=== PATIENT | female | born 1980 | race Caucasian/White ===

== ENCOUNTER 2020-12-19 13:27 | Outpatient (REF) | payer OTHER, SELFPAY ==
--- NOTE | ~2020-12-19 | MM_ITS ---
EXAMINATION: MM SCREENING DIGITAL BREAST TOMOSYNTHESIS, BILATERAL CLINICAL INFORMATION: Screening. Asymptomatic. The lifetime risk of breast cancer based on the Tyrer-Cuzick Model is 8%. COMPARISON: Mammography: 10/10/2018 (baseline). TECHNIQUE: Digital breast tomosynthesis is performed in both the craniocaudal and mediolateral oblique views along with computer-aided detection (CAD). Synthesized 2D images are generated from the tomosynthesis. FINDINGS: There are scattered areas of fibroglandular density (ACR BI-RADS breast composition Category b). There are no significant masses, abnormal calcifications, or other abnormalities. Parenchymal pattern is similar to prior baseline exam. No developing density. The skin contours are smooth. MM/MM tomosynthesis screening BI IMPRESSION: No mammographic evidence of malignancy. ASSESSMENT: BI-RADS 1: Negative RECOMMENDATION: Routine annual mammography screening. This patient's information was entered into a reminder system with a target due date for their next mammogram.
== END 2020-12-19 13:28 | disposition home or self-care (01) ==
LOC: HO.MAMMO 13:27
PROVIDERS: Visit Provider Internal Medicine
DX: Z12.31 Encounter for screening mammogram for malignant neoplasm of breast (principal)
CPT/HCPCS: 77063; 77067

== ENCOUNTER 2020-12-24 07:51 | Outpatient (REF) | payer OTHER, SELFPAY ==
[2020-12-24 08:40] LABS: MANUAL DIFF FLAG NO
[2020-12-24 09:01] LABS: Alanine Aminotransferase 15 U/L (0-31); Albumin Level 3.9 g/dL (3.5-5.0); Alkaline Phosphatase 85 U/L (39-117); Anion Gap 13 (12-20); Aspartate Amino Transferase 17 U/L (5-31); Bilirubin Total 0.6 mg/dL (0.0-1.0); Blood Urea Nitrogen 12 mg/dL (9-16); Carbon Dioxide 25 mmol/L (22-29); Chloride 105 mmol/L (96-108); Cholesterol 173 mg/dL; Estimated Glomerular Filt Rate > 60; Glucose Fasting 106 mg/dL (60-99); HDL Cholesterol 51 mg/dL; LDL Cholesterol Calculated 109 mg/dl; Potassium 4.6 mmol/L (3.3-5.1); Sodium 138 mmol/L (135-145); Total Protein 6.5 g/dL (6.5-8.0); Triglycerides 65 mg/dL
[2020-12-24 09:06] LABS: Basophils Percent Auto 0.1 % (0-2); Eosinophils Absolute Auto 0.2 X10*3/uL (0.0-0.4); Eosinophils Percent Auto 2.6 % (0-4); Hematocrit 38.6 % (37-47); Hemoglobin 12.7 g/dl (12.0-16.0); Imm Gran Abs Auto 0.03 X10*3/uL (0.00-0.03); Imm Gran Pct Auto 0.3 % (0.0-0.4); Lymphocytes Absolute Auto 2.9 X10*3/uL (1.2-4.9); Lymphocytes Percent Auto 31.2 % (20-40); Mean Corpuscular HGB Conc 32.9 g/dl (31.0-35.0); Mean Corpuscular Hemoglobin 31.1 pg (27.0-33.0); Mean Corpuscular Volume 94.6 fL (80-98); Mean Platelet Volume 8.1 fL (9.4-12.3); Monocytes Absolute Auto 0.5 X10*3/uL (0.1-1.2); Monocytes Percent Auto 5.7 % (2-11); Neutrophils Absolute Auto 5.6 X10*3/uL (2.0-8.3); Neutrophils Percent Auto 60.1 % (45-73); Platelet Count 360 X10*3/uL (160-400); Red Blood Count 4.08 X10*6/uL (4.20-5.50); Red Cell Distribution Width 13.7 % (11.0-16.0); White Blood Count 9.3 X10*3/uL (4.8-10.8)
[2020-12-24 09:25] LABS: Thyroid Stimulating Hormone 0.92 uIU/mL (0.32-4.0)
== END 2020-12-24 07:52 | disposition home or self-care (01) ==
LOC: HO.LAB 07:51
PROVIDERS: PCP Internal Medicine; Visit Provider Internal Medicine
DX: E66.9 Obesity, unspecified (principal); E78.5 Hyperlipidemia, unspecified; D64.9 Anemia, unspecified
CPT/HCPCS: 36415; 80053; 80061; 84443; 85025

== ENCOUNTER → 2021-02-24 15:06 | Outpatient (BNVA) | payer OTHER, SELFPAY | PROVIDERS: PCP Internal Medicine; Visit Provider Nurse Practitioner ==

== ENCOUNTER 2021-03-19 08:22 | Outpatient (REF) | payer OTHER, SELFPAY ==
--- NOTE | ~2021-03-19 | US_ITS ---
EXAMINATION: US ABDOMEN COMPLETE CLINICAL INFORMATION: Upper abdominal pain, unspecified. COMPARISON: Ultrasound abdomen limited 01/07/2016. Ultrasound abdomen complete 01/26/2013. TECHNIQUE: Real-time imaging of the abdominal viscera. FINDINGS: PANCREAS: The body of the pancreas is normal. The head and tail are not well visualized. ABDOMINAL AORTA: The proximal, mid, and distal segments are normal in caliber. INFERIOR VENA CAVA: Visualized portions are normal. LIVER: Normal. The liver is normal in size. The liver contour is normal. Parenchymal echogenicity is normal. No focal hepatic lesion. There is no intrahepatic biliary duct dilatation seen. GALLBLADDER: Normal. The gallbladder is physiologically distended without evidence of stones, sludge, polyps, wall thickening or pericholecystic fluid. COMMON BILE DUCT: Normal in caliber measuring 0.5 cm in diameter. RIGHT KIDNEY: Normal. No hydronephrosis. No renal calculi or focal parenchymal lesions. The kidney measures 11.2 cm in maximum dimension. LEFT KIDNEY: Normal. No hydronephrosis. No renal calculi or focal parenchymal lesions. The kidney measures 11.2 cm in maximum dimension. SPLEEN: Normal. The spleen measures 10.5 cm in maximum dimension. FREE FLUID: None. US/US abdomen complete IMPRESSION: Limited visualization of the pancreas otherwise unremarkable abdominal ultrasound.
== END 2021-03-19 08:23 | disposition home or self-care (01) ==
LOC: HO.US 08:22
PROVIDERS: PCP Internal Medicine; Visit Provider Nurse Practitioner
DX: R10.10 Upper abdominal pain, unspecified (principal); R14.0 Abdominal distension (gaseous)
CPT/HCPCS: 76700

== ENCOUNTER → 2021-03-25 07:57 | Outpatient (REF) | payer OTHER, SELFPAY ==
--- NOTE | ~2021-03-25 | NM_ITS ---
EXAMINATION: WA RADIONUCLIDE SOLID FOOD GASTRIC EMPTYING 4-HOUR STUDY CLINICAL INFORMATION: Early satiety. COMPARISON: None TECHNIQUE: A standard meal consisting of 4 oz of Egg Beaters brand tagged with 1.0 microcuries Tc-99m Sulfur Colloid, 8 oz water and 2 slices of toast with jelly was administered orally to the patient. Images were obtained using a dual head gamma camera in the anterior and posterior projections over of the stomach immediately post ingestion and at hourly intervals up to 4 hours post ingestion. The anterior and posterior counts at each time interval were averaged using the geometric mean and expressed as percentage of the immediate post ingestion counts. FINDINGS: There is good visualization of activity in the stomach immediately post ingestion. As the study progresses, there is good clearance of activity from the stomach and visualization of progressively increasing small bowel activity. By the end of the study, there is almost no retention noted in the stomach. Retention in the stomach at each time interval was: 1 hour 39% (normal 37%-90%) 2 hours 18% (normal 30%-60%) 3 hours 9% 4 hours not performed (normal 0%-10%) WA/WA gastric emptying study IMPRESSION: Normal 4-hour solid food gastric emptying study.
== END ==
LOC: HO.NUCMED 07:57
PROVIDERS: Nurse Practitioner; Visit Provider Internal Medicine
DX: R10.10 Upper abdominal pain, unspecified (principal); R68.81 Early satiety
CPT/HCPCS: 78264; 87338; A9541

== ENCOUNTER → 2021-03-31 16:10 | Outpatient (BNVA) | payer OTHER, SELFPAY | PROVIDERS: PCP Internal Medicine; Visit Provider Nurse Practitioner ==

== ENCOUNTER → 2021-05-12 09:54 | Outpatient (BNVA) | payer OTHER, SELFPAY | PROVIDERS: PCP Internal Medicine; Referring Provider Internal Medicine; Visit Provider Nurse Practitioner | DX: Z11.0 Encounter for screening for intestinal infectious diseases (principal); A04.8 Other specified bacterial intestinal infections; K21.9 Gastro-esophageal reflux disease without esophagitis; R10.9 Unspecified abdominal pain; R14.0 Abdominal distension (gaseous); R10.10 Upper abdominal pain, unspecified | CPT/HCPCS: 99212 ==

== ENCOUNTER 2021-07-13 16:20 | Outpatient (REF) | payer OTHER, SELFPAY | END 2021-07-13 16:21 | disposition home or self-care (01) | LOC: HO.LNP 16:20 | PROVIDERS: Visit Provider Nurse Practitioner | DX: A04.8 Other specified bacterial intestinal infections (principal) | CPT/HCPCS: 87338 ==

== ENCOUNTER → 2021-07-31 13:24 | Outpatient (BNVA) | payer OTHER, SELFPAY | PROVIDERS: PCP Internal Medicine; Referring Provider Internal Medicine; Visit Provider Nurse Practitioner | DX: A04.8 Other specified bacterial intestinal infections (principal); R14.0 Abdominal distension (gaseous); K21.9 Gastro-esophageal reflux disease without esophagitis | CPT/HCPCS: 99212 ==

== ENCOUNTER 2021-08-11 16:30 | Outpatient (REF) | payer OTHER, SELFPAY ==
--- NOTE | ~2021-08-11 | XR_ITS ---
EXAMINATION: XR LUMBOSACRAL SPINE CLINICAL INFORMATION: Pain COMPARISON: None TECHNIQUE: Three views of the lumbosacral spine. FINDINGS: The vertebral bodies and posterior elements are normal. The disc spaces are preserved and the vertebral alignment is normal. The paraspinal soft tissues are normal. There is an IUD in the pelvis. XR/XR lumbar spine 2-3V IMPRESSION: Unremarkable examination.
--- NOTE | ~2021-08-11 | XR_ITS ---
EXAMINATION: BILATERAL KNEE X-RAY CLINICAL INFORMATION: Pain COMPARISON: None TECHNIQUE: 4 views of each knee FINDINGS: Right: Bone alignment is normal. No acute fracture or dislocation is seen. There is a well-corticated ossified density adjacent to the lateral patella seen on the sunrise view only, question related to old trauma. There is no joint effusion. Left: Bone alignment is normal. No fracture or dislocation is seen. Joint spaces are normal. There is no joint effusion. XR/XR knee RT 3V IMPRESSION: Right: Small soft tissue ossification adjacent to the lateral patella seen on the sunrise view only, question related to old trauma otherwise unremarkable exam. Left: Unremarkable exam.
--- NOTE | ~2021-08-11 | XR_ITS ---
EXAMINATION: BILATERAL KNEE X-RAY CLINICAL INFORMATION: Pain COMPARISON: None TECHNIQUE: 4 views of each knee FINDINGS: Right: Bone alignment is normal. No acute fracture or dislocation is seen. There is a well-corticated ossified density adjacent to the lateral patella seen on the sunrise view only, question related to old trauma. There is no joint effusion. Left: Bone alignment is normal. No fracture or dislocation is seen. Joint spaces are normal. There is no joint effusion. XR/XR knee LT 3V IMPRESSION: Right: Small soft tissue ossification adjacent to the lateral patella seen on the sunrise view only, question related to old trauma otherwise unremarkable exam. Left: Unremarkable exam.
== END 2021-08-11 16:31 | disposition home or self-care (01) ==
LOC: HO.XRAY 16:30
PROVIDERS: PCP Internal Medicine; Visit Provider Nurse Practitioner Family
DX: M54.50 Low back pain, unspecified (principal); M25.562 Pain in left knee; M25.561 Pain in right knee
CPT/HCPCS: 72100; 73562

== ENCOUNTER 2021-09-28 10:53 | Outpatient (REF) | payer OTHER, SELFPAY ==
[2021-09-28 11:48] LABS: Rheumatoid Factor < 15.0 IU/mL (<15.0)
[2021-09-30 15:26] LABS: Anti Nuclear Antibody Screen NEGATIVE (NEGATIVE)
== END 2021-09-28 10:54 | disposition home or self-care (01) ==
LOC: HO.LAB 10:53
PROVIDERS: PCP Internal Medicine; Visit Provider Nurse Practitioner Family
DX: M25.561 Pain in right knee (principal); M25.562 Pain in left knee
CPT/HCPCS: 36415; 86038; 86039; 86431

== ENCOUNTER 2021-10-28 17:00 | Outpatient (RCR) | payer OTHER, SELFPAY ==
--- NOTE | 2021-10-14 18:05 | MHC.PT.EP ---
[facility] [place] [facility] [place] [facility] [employer] [facility] [address] Kateryna Kothari [address] [phone] F: [phone] F: [phone] F: [phone] F: [phone] Physical Therapy Plan of Care Date of Evaluation: Date of Surgery: N/A Diagnosis: M25.561 pain in right knee M25.562 pain in left knee Assessment: pt's signs and symptoms consistent w/ B patellar tendinopathy. Questionable potential meniscal involvement given pt's subjective reports of her knee getting stuck and having to manipulate her knee to extend it. pt presents to physical therapy with pain, decreased range of motion, decreased strength, impaired functional mobility, impaired postural awareness, and gait deviations. pt is a good candidate for skilled PT due to age, potential remediation of impairments, typical disease/condition progression and prognosis, comorbidities, and motivation. pt would benefit from tailored strengthening and stretching exercise program, functional training, gait training, postural re-training, neuromuscular re-education, modalities as needed for pain, equipment safety demonstration. Frequency and Duration: The patient will be seen 1x/wk for 6 wks Short Term Goals: pt will be I w/ HEP to promote self-management of condition. pt will improve B quad strength to 5/5 to promote ease in sit to stand transfers. Acid Filler Goals: pt will ascend/descend 10 stairs w/ reciprocal pattern to promote ease in accessing primary living spaces. pt will report a statistically significant improvement in self-reported outcome measure, LEFI, to promote return to PLOF. Treatment Plan: Modalities to reduce pain, spasms and effusion. Manual therapy to restore motion and function. Therapeutic exercise to improve strength and flexibility. Neuromuscular re-education for posture and balance. Therapeutic activities to return to functional activities of daily living. Electronically signed by: Joselin Waddell PT, DPT Please sign and return to therapist. Thank you for your referral.
--- NOTE | 2021-11-19 15:16 | MHC.PT.DC ---
[facility] [place] [facility] [place] [facility] [place] [facility] [address] Kateryna Kothari [address] [phone] F: [phone] F: [phone] F: [phone] F: [phone] Physical Therapy Discharge Report Diagnosis: M25.561 pain in right knee M25.562 pain in left knee Date of Surgery: N/A Date of Evaluation: 10/14/21 Date of Discharge: 11/19/21 Treatments to Date: 2 Cancellations to Date: 0 No Shows to Date: 3 Discharge Status: Visit Non-compliance Discharge Summary: The patient overall had very poor tolerance of all exercises. She only attended the initial evaluation and one treatment session. Patient unable to tolerate gentle, open chain activities. She performed exercises with very slow pace and facial grimacing throughout session. Her signs and symptoms appear to be consistent with a meniscal tear as she reports frequent clicking and catching of the knee that she has to manipulate to be able to extend. Kinesiotape was trialed with reports of improvement of pain. She was offered iontophoresis but declined. She was offered ultrasound and stated she would be interested in this treatment; however, eventually declined. She does not have an orthopedic doctor so she was encouraged to get a referral to see them to see if they can order her an MRI to assess the soft tissue integrity. She has missed three consecutive appointments. Per [facility] attendance policy she is to be discharged from this physical therapy plan of care due to visit non-compliance. Electronically signed by: Joselin Waddell PT, DPT Please sign and return to therapist. Thank you for your referral.
== END 2021-11-19 15:16 | disposition home or self-care (01) ==
LOC: HO.PT 17:00
PROVIDERS: PCP Internal Medicine; Visit Provider Nurse Practitioner Family
DX: M25.561 Pain in right knee (principal); M25.562 Pain in left knee
CPT/HCPCS: 97110; 97161

== ENCOUNTER → 2021-11-19 12:49 | Outpatient (BNVA) | payer OTHER, SELFPAY | PROVIDERS: PCP Internal Medicine; Visit Provider Physician Assistant | DX: M54.50 Low back pain, unspecified (principal); M22.2X1 Patellofemoral disorders, right knee; M54.16 Radiculopathy, lumbar region | CPT/HCPCS: 99202 ==

== ENCOUNTER → 2021-12-11 13:00 | Outpatient (BNVA) | payer OTHER, SELFPAY | PROVIDERS: PCP Internal Medicine; Visit Provider Nurse Practitioner Family | DX: M25.561 Pain in right knee (principal); M25.562 Pain in left knee | CPT/HCPCS: 99202 ==

== ENCOUNTER → 2022-01-15 12:51 | Outpatient (BNVA) | payer OTHER, SELFPAY | PROVIDERS: PCP Internal Medicine; Visit Provider Nurse Practitioner Family | DX: M25.561 Pain in right knee (principal); M25.562 Pain in left knee | CPT/HCPCS: 99212 ==

== ENCOUNTER 2022-01-29 11:24 | Emergency (ER) | payer OTHER, SELFPAY ==
--- NOTE | ~2022-01-29 | US_ITS ---
EXAMINATION: US VENOUS ULTRASOUND WITH DOPPLER LOWER EXTREMITY, BILATERAL CLINICAL INFORMATION: Bilateral lower extremity/calf pain. Assess for occult DVT. COMPARISON: CT left knee 01/29/2022, radiographs right knee 08/11/2021 TECHNIQUE: Ultrasound of the deep veins is performed from the hip to the calf with compression sonography and color and pulse Doppler assessment. Spectral analysis with color-flow imaging is performed. FINDINGS: RIGHT: There is normal venous compression and respiratory variation and augmented flow. The visualized common femoral vein, superficial femoral vein, profunda femoral vein, popliteal vein, and the trifurcation region shows no evidence of deep venous thrombosis. There is no significant popliteal fossa cyst. LEFT: There is normal venous compression and respiratory variation and augmented flow. The visualized common femoral vein, superficial femoral vein, profunda femoral vein, popliteal vein, and the trifurcation region shows no evidence of deep venous thrombosis. There is no significant popliteal fossa cyst. US/US venous duplex LE BI IMPRESSION: No DVT demonstrated in the bilateral lower extremity.
--- NOTE | ~2022-01-29 | CT_ITS ---
EXAMINATION: CT KNEE, LEFT WITHOUT CONTRAST CLINICAL INFORMATION: Negative x-ray. Pain. COMPARISON: 08/11/2021 TECHNIQUE: Multidetector volumetric imaging of the left knee performed without IV contrast. Coronal and sagittal reformatted images are obtained and reviewed. This CT examination was performed using dose optimization techniques as appropriate, variously including the following: *Automated exposure control *Adjustment of mA and/or kV according to patient size (this includes techniques or standardized protocols for targeted exams where dose is matched to indication/reason for exam; i.e. extremities or head) *Use of iterative reconstruction technique DLP: 202 mGy-cm FINDINGS: There is no acute fracture or subluxation. Moderate medial compartment joint space narrowing. Small tricompartmental marginal osteophytes are noted. There is a small suprapatellar joint effusion. The soft tissues are unremarkable. CT/CT knee LT wo con IMPRESSION: Small joint effusion. Tricompartmental degenerative changes are present which are greatest at the medial compartment with moderate joint space narrowing. No acute fracture or malalignment.
[2022-01-29 11:25] VITALS: RESP 18; O2SAT 97; BMI 25.8
[2022-01-29 15:05] VITALS: BP 114/69; PULSE 62; RESP 18; TEMP 36.7; O2SAT 100
--- NOTE | 2022-01-29 16:36 | ED.GENADULT ---
HPI - General Adult General Chief complaint: Extremity Injury, Lower Stated complaint: cant walk/knee pain Time Seen by Provider: 01/29/22 11:33 History of Present Illness HPI narrative: Patient complains of left knee pain making it hard to walk with no injury, this is been going on for several months The knee pain has been worsening, and now she has pain in both lower legs as well There is no shortness of breath no fever Related Data Previous Rx's Medication Instructions Recorded lidocaine 4 % topical patch 2 patch topical DAILY PRN pain #30 09/28/21 (Aspercreme (lidocaine)) ea acetaminophen 500 mg tablet 1,000 mg PO QID PRN pain #30 tabs 01/29/22 ibuprofen 600 mg tablet 600 mg PO Q6H PRN pain #20 tabs 01/29/22 Allergies Allergy/AdvReac Type Severity Reaction Status Date / Time egg Allergy Intermediate vomitting, Verified 02/03/22 09:41 hives peanut Allergy Mild Abdominal Verified 02/03/22 09:41 Pain latex [LATEX] AdvReac Intermediate rash Verified 02/03/22 09:41 Review of Systems Review of Systems: Positive for atraumatic left knee pain and bilateral calf Negatives are no fever no chills no fall no fainting no dizziness no neck pain no back pain no numbness weakness or tingling no skin rash no chest pain no shortness of breath no vomiting Yes all other systems are reviewed and are negative PMFSH Past Medical History Source: nursing notes reviewed Medical History Early satiety GERD (gastroesophageal reflux disease) H. pylori infection Lumbar back pain Obesity Surgical History History of hernia surgery Family History Family History Mother Cervical cancer Father Diabetes Family/Other Substance use disorder Mental health disorder Social History Social History Housing: Apartment Alcohol intake: former Patient Tobacco Use Status: Former Tobacco user Tobacco use type: Cigarette e-Cigarette/Vaping Use: Never Used Second Hand Smoke Exposure: No service: No Current occupational status: employed Cognitive needs: No Hearing needs: No Vision needs: Yes Physical Exam ED Vital Signs: Vital Signs - 24 hr 01/29/22 11:25 01/29/22 15:05 Temperature 98.0 F Pulse Rate 62 Respiratory Rate 18 18 Blood Pressure 114/69 Pulse Oximetry 97 100 Oxygen Delivery Method Room Air Room Air BMI result Body Mass Index 25.8 General appearance uncomfortable no acute distress Head is normocephalic atraumatic Neck is supple Respiratory no distress Chest clear to auscultation bilateral Heart no murmur Abdomen soft nontender Extremities there is tenderness without swelling to both posterior lower legs The skin is normal there is no redness no warmth no wounds, both legs are neurovascular intact distal Left knee there is tenderness and mild swelling around the joint, the patient can extend to 180 can flex to about 90, walks with a limp and has no obvious effusion, no ligamentous laxity Skin no rash Neuro no focal motor sensory deficits Course Course Course Narrative: Patient with complaint of left knee pain with no injury that is been increasingly severe over recent months had imaging with a CT scan of the left knee and bilateral ultrasounds for her posterior leg pain there was no DVT there was no finding of any mass on this noncontrast CT scan Patient is advised to follow with primary doctor or orthopedist, she may need further imaging to rule out the possibility of any mass or other issue that could be causing this increasingly severe pain Discharge Plan Discharge Clinical Impression: Left knee pain, Bilateral leg pain Patient Disposition: Home, Self-Care Additional Instructions: The Ct scan did not show any acute explanation for your left knee pain Ultrasound did not show any blood clots Follow with primary doctor or orthopedist for further evaluation, you may need MRI or other imaging to rule out any mass or any treatable cause of this pain Return any time any worse condition or any concerns Prescriptions: New acetaminophen 500 mg tablet 1,000 mg PO QID PRN (Reason: pain) Qty: 30 0RF ibuprofen 600 mg tablet 600 mg PO Q6H PRN (Reason: pain) Qty: 20 0RF No Action lidocaine [Aspercreme (lidocaine)] 4 % adhesive patch,medicated 2 patch topical DAILY PRN (Reason: pain) Qty: 30 0RF Referrals: Vipul Barraza MD [Physician] - (Left knee pain) Interventions: ED Discharge Assessment Last Done: 01/29/22 17:12 Discharge Date/Time: 01/29/22 17:14
== END 2022-01-29 17:14 | disposition home or self-care (01) ==
PROVIDERS: Emergency Provider Student in an Organized Health Care Education/Training Program; PCP Internal Medicine
DX: M25.562 Pain in left knee (principal); M79.605 Pain in left leg; M79.604 Pain in right leg; Z87.891 Personal history of nicotine dependence
CPT/HCPCS: 73700; 93970; 99282; 99284

== ENCOUNTER 2022-03-17 07:52 | Outpatient (REF) | payer OTHER, SELFPAY ==
--- NOTE | ~2022-03-17 | XR_ITS ---
EXAMINATION: XR KNEE AP STANDING CLINICAL INFORMATION: Pain COMPARISON: Previous x-ray August 2021 TECHNIQUE: AP bilateral standing view of the knees was obtained. FINDINGS: Bone alignment is normal. There is bilateral medial femoral tibial joint space narrowing, left greater than right. Soft tissues are normal. XR/XR knee standing BI IMPRESSION: Bilateral medial femoral tibial joint space narrowing, left greater than right.
== END 2022-03-17 07:53 | disposition home or self-care (01) ==
LOC: HO.HOSX 07:52
PROVIDERS: Visit Provider Physician Assistant
DX: M25.561 Pain in right knee (principal); M25.562 Pain in left knee; E66.3 Overweight; M17.10 Unilateral primary osteoarthritis, unspecified knee
CPT/HCPCS: 73565; 99202

== ENCOUNTER 2022-04-02 18:27 | Emergency (ER) | payer OTHER, SELFPAY ==
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
[2022-04-02 18:39] VITALS: BP 123/76; PULSE 65; RESP 18; TEMP 37.2; O2SAT 100; BMI 32.3
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
[2022-04-02] MEDS: Cyclobenzaprine HCl 10 MG TABLET PO (20:14)
== END 2022-04-02 22:47 | disposition home or self-care (01) ==
PROVIDERS: Emergency Provider Emergency Medicine; PCP Internal Medicine
DX: S13.4XXA Sprain of ligaments of cervical spine, initial encounter (principal); S39.012A Strain of muscle, fascia and tendon of lower back, initial encounter; M54.2 Cervicalgia; R51.9 Headache, unspecified; V43.52XA Car driver injured in collision with other type car in traffic accident, initial encounter; Y93.9 Activity, unspecified; Y92.410 Unspecified street and highway as the place of occurrence of the external cause; Y99.9 Unspecified external cause status; Z87.891 Personal history of nicotine dependence; Z79.899 Other long term (current) drug therapy
CPT/HCPCS: 72040; 72100; 99283

== ENCOUNTER 2022-06-08 15:21 | Outpatient (REF) | payer OTHER, SELFPAY ==
--- NOTE | ~2022-06-08 | MM_ITS ---
EXAMINATION: MM SCREENING DIGITAL BREAST TOMOSYNTHESIS, BILATERAL CLINICAL INFORMATION: Screening. Asymptomatic. The lifetime risk of breast cancer based on the Tyrer-Cuzick Model is 8%. COMPARISON: Mammography: 12/19/2020, 10/10/2018 (baseline) TECHNIQUE: Digital breast tomosynthesis is performed in both the craniocaudal and mediolateral oblique views along with computer-aided detection (CAD). Synthesized 2D images are generated from the tomosynthesis. FINDINGS: There are scattered areas of fibroglandular density (ACR BI-RADS breast composition Category b). There are no significant masses, abnormal calcifications, or other abnormalities. Parenchymal pattern is similar to prior studies. No developing density. The axilla and skin contours are unremarkable. There are no significant changes. MM/MM tomosynthesis screening BI IMPRESSION: No mammographic evidence of malignancy. ASSESSMENT: BI-RADS 1: Negative RECOMMENDATION: Routine annual mammography screening. This patient's information was entered into a reminder system with a target due date for their next mammogram.
== END 2022-06-08 15:22 | disposition home or self-care (01) ==
LOC: HO.MAMMO 15:21
PROVIDERS: PCP Internal Medicine; Visit Provider Internal Medicine
DX: Z12.31 Encounter for screening mammogram for malignant neoplasm of breast (principal)
CPT/HCPCS: 77063; 77067

== ENCOUNTER 2022-06-17 | Outpatient (REF) | payer OTHER, SELFPAY ==
[2022-06-18 14:12] LABS: H Pylori Breath Test Positive (Negative)
== END 2022-06-17 00:01 | disposition home or self-care (01) ==
LOC: HO.LNP
PROVIDERS: Visit Provider Nurse Practitioner
DX: K21.9 Gastro-esophageal reflux disease without esophagitis (principal); E66.9 Obesity, unspecified; A04.8 Other specified bacterial intestinal infections
CPT/HCPCS: 83013

== ENCOUNTER → 2022-06-17 15:57 | Outpatient (BNVA) | payer OTHER, SELFPAY | PROVIDERS: PCP Internal Medicine; Visit Provider Nurse Practitioner | DX: A04.8 Other specified bacterial intestinal infections (principal); R10.10 Upper abdominal pain, unspecified; K21.9 Gastro-esophageal reflux disease without esophagitis; R14.0 Abdominal distension (gaseous); R10.9 Unspecified abdominal pain | CPT/HCPCS: 99212 ==

== ENCOUNTER 2022-07-06 14:44 | Outpatient (REF) | payer OTHER, SELFPAY ==
[2022-07-06 18:18] LABS: CT PCR NOT DETECTED (Not Detect.); NG PCR NOT DETECTED (Not Detect.)
[2022-07-07 13:05] LABS: BV Int Neg Control Negative (Negative); BV Int Pos Control Positive (Positive)
[2022-07-09 22:13] LABS: HPV mRNA E6/E7 rflx Not Detected (Not Detected)
== END 2022-07-06 14:45 | disposition home or self-care (01) ==
LOC: HO.LNP 14:44
PROVIDERS: PCP Internal Medicine; Visit Provider Advanced Practice Midwife
DX: Z01.419 Encounter for gynecological examination (general) (routine) without abnormal findings (principal); Z11.51 Encounter for screening for human papillomavirus (HPV); R14.0 Abdominal distension (gaseous); Z97.5 Presence of (intrauterine) contraceptive device
CPT/HCPCS: 87480; 87491; 87510; 87591; 87624; 87660; 88142

== ENCOUNTER 2022-07-20 15:39 | Outpatient (REF) | payer OTHER, SELFPAY ==
--- NOTE | ~2022-07-20 | US_ITS ---
EXAMINATION: US PELVIS CLINICAL INFORMATION: Screening COMPARISON: None TECHNIQUE: Ultrasound of the pelvis is performed using both transabdominal and transvaginal transducers along with Doppler. Transvaginal imaging is performed due to inadequate visualization transabdominally. FINDINGS: Uterus: The uterus is anteverted and measures 8.8 x 4.2 x 5.5 cm. Anteverted without focal lesion. IUD in place without migration. Nabothian cyst. The double wall endometrial thickness is 0.9 mm. The uterus is smooth in contour and has normal myometrial echogenicity. No visible fibroid. Adnexa: Both ovaries are visualized. There is normal color flow to the adnexa. There is no ovarian torsion. There is no pelvic ascites or fluid collection. Right ovary 10 mL in volume and left ovary 5 mL in volume. US/US pelvic and transvaginal IMPRESSION: No focal lesion.
== END 2022-07-20 15:40 | disposition home or self-care (01) ==
LOC: HO.US 15:39
PROVIDERS: Visit Provider Advanced Practice Midwife
DX: R14.0 Abdominal distension (gaseous) (principal); Z11.3 Encounter for screening for infections with a predominantly sexual mode of transmission; Z97.5 Presence of (intrauterine) contraceptive device
CPT/HCPCS: 76830; 76856

== ENCOUNTER → 2022-08-12 15:53 | Outpatient (BNVA) | payer OTHER, SELFPAY | PROVIDERS: PCP Internal Medicine; Visit Provider Nurse Practitioner | DX: A04.8 Other specified bacterial intestinal infections (principal); R10.9 Unspecified abdominal pain | CPT/HCPCS: 99212 ==

== ENCOUNTER → 2022-09-06 15:00 | Outpatient (BNVA) | payer OTHER, SELFPAY | PROVIDERS: PCP Internal Medicine; Visit Provider Physician Assistant | DX: Z13.89 Encounter for screening for other disorder (principal) ==

== ENCOUNTER 2022-09-11 08:25 | Outpatient (REF) | payer OTHER, SELFPAY ==
[2022-09-11 09:27] LABS: Alanine Aminotransferase 37 U/L (0-31); Albumin Level 3.8 g/dL (3.5-5.0); Alkaline Phosphatase 72 U/L (39-117); Anion Gap 12 (12-20); Aspartate Amino Transferase 28 U/L (5-31); Bilirubin Total 0.8 mg/dL (0.0-1.0); Blood Urea Nitrogen 13 mg/dL (9-16); Calcium 9.2 mg/dL (8.4-10.2); Carbon Dioxide 26 mmol/L (22-29); Chloride 104 mmol/L (96-108); Cholesterol 190 mg/dL; Estimated Glomerular Filt Rate > 60; Glucose Fasting 98 mg/dL (60-99); HDL Cholesterol 64 mg/dL; LDL Cholesterol Calculated 110 mg/dl; Potassium 4.2 mmol/L (3.3-5.1); Sodium 138 mmol/L (135-145); Total Protein 6.4 g/dL (6.5-8.0); Triglycerides 82 mg/dL
[2022-09-11 09:44] LABS: Vitamin D 25-OH Total 23.5 ng/mL (>30)
== END 2022-09-11 08:26 | disposition home or self-care (01) ==
LOC: HO.LAB 08:25
PROVIDERS: PCP Internal Medicine; Visit Provider Internal Medicine
DX: Z00.00 Encounter for general adult medical examination without abnormal findings (principal); E55.9 Vitamin D deficiency, unspecified
CPT/HCPCS: 36415; 80053; 80061; 82306

== ENCOUNTER → 2022-09-29 14:36 | Outpatient (BNVA) | payer OTHER, SELFPAY | PROVIDERS: PCP Internal Medicine; Visit Provider Nurse Practitioner | DX: A04.8 Other specified bacterial intestinal infections (principal); K21.9 Gastro-esophageal reflux disease without esophagitis; R10.10 Upper abdominal pain, unspecified | CPT/HCPCS: 99212 ==

== ENCOUNTER 2022-10-16 18:30 | Outpatient (REF) | payer OTHER, SELFPAY | END 2022-10-16 18:31 | disposition home or self-care (01) | LOC: HO.LNP 18:30 | PROVIDERS: Visit Provider Nurse Practitioner | DX: Z13.89 Encounter for screening for other disorder (principal) ==

== ENCOUNTER 2022-11-10 15:02 | Outpatient (REF) | payer OTHER, SELFPAY | END 2022-11-10 15:03 | disposition home or self-care (01) | LOC: HO.LNP 15:02 | PROVIDERS: PCP Internal Medicine; Visit Provider Advanced Practice Midwife | DX: A42.9 Actinomycosis, unspecified (principal); Z97.5 Presence of (intrauterine) contraceptive device | CPT/HCPCS: 81025; 87081; 99212 ==

== ENCOUNTER 2022-11-11 16:33 | Outpatient (REF) | payer OTHER, SELFPAY | END 2022-11-11 16:34 | disposition home or self-care (01) | LOC: HO.LNP 16:33 | PROVIDERS: Visit Provider Nurse Practitioner | DX: A04.8 Other specified bacterial intestinal infections (principal) | CPT/HCPCS: 87338 ==

== ENCOUNTER → 2022-11-26 15:06 | Outpatient (BNVA) | payer OTHER, SELFPAY | PROVIDERS: PCP Internal Medicine; Visit Provider Nurse Practitioner | DX: A04.8 Other specified bacterial intestinal infections (principal); K21.9 Gastro-esophageal reflux disease without esophagitis; R10.10 Upper abdominal pain, unspecified | CPT/HCPCS: 99212 ==

== ENCOUNTER → 2022-12-06 15:26 | Outpatient (BNVA) | payer OTHER, SELFPAY | PROVIDERS: PCP Internal Medicine; Visit Provider Physician Assistant Surgical ==

== ENCOUNTER → 2022-12-24 14:05 | Outpatient (BNVA) | payer OTHER, SELFPAY | PROVIDERS: PCP Internal Medicine; Visit Provider Nurse Practitioner | DX: K21.9 Gastro-esophageal reflux disease without esophagitis (principal); A04.8 Other specified bacterial intestinal infections; R10.9 Unspecified abdominal pain | CPT/HCPCS: 99212 ==

== ENCOUNTER 2023-01-08 08:51 | Outpatient (REF) | payer OTHER, SELFPAY | END 2023-01-08 08:52 | disposition home or self-care (01) | LOC: HO.LAB 08:51 | PROVIDERS: Visit Provider Nurse Practitioner | DX: A04.8 Other specified bacterial intestinal infections (principal) | CPT/HCPCS: 87338 ==

== ENCOUNTER 2023-01-28 15:11 | Outpatient (AMB) | payer OTHER, SELFPAY ==
--- NOTE | 2023-01-28 15:15 | A.OFFVIS_ITS ---
Intake Vital Signs 01/28/23 15:16 Height 5 ft 6 in Weight 246 lb 0.574 oz BMI 39.7 BP 106/57 L Blood Pressure Location Rt brachial Position Sitting Pulse 92 Intake Visit Reasons: 6 week follow up Intake Note: Sabra presents in office as a est.patient for a 6 weeks as follow up of GERD. CC: Pt reports GERD is under control with medications. Denies other GI symptoms today. Email Production Specialist Required: Yes Email Production Specialist Language: Mailing Machine Helper Name: Eryn [id number] Accompanied by: Self / Same As Patient Allergies egg Allergy (Intermediate, Verified 01/28/23 15:19) vomitting, hives peanut Allergy (Mild, Verified 01/28/23 15:19) Abdominal Pain latex [LATEX] Adverse Reaction (Intermediate, Verified 01/28/23 15:19) rash HPI 6 week follow up HPI Details Assessment & Plan (1) H. pylori infection: ?Comment: To date has failed quadruple therapy and Levaquin/amoxicillin rescue ?Code(s): A04.8 - Other specified bacterial intestinal infections ?Plan: [place]ian [employer] Feeling better now, had to stop the leva/amox r/t a/e and had about 5 days left. Will re test to see of we got isai and eradicated it. She DID use a probiotic and this worked well for preventing hal. Continues on omeprazole and dicyclomine 10mg qid. ROV 6 weeks. (2) GERD (gastroesophageal reflux disease): ?Code(s): K21.9 - Gastro-esophageal reflux disease without esophagitis ?Qualifiers: ?Esophagitis presence:?esophagitis presence not specified? Qualified Code(s):?K21.9 - Gastro-esophageal reflux disease without esophagitis (3) Abdominal cramping: ?Code(s): R10.9 - Unspecified abdominal pain ? ? ? Orders: Orders H pylori Ag StoolA Today A04.8 - Other spec ified bacterial in testinal infection s ? Medications: New dicyclomine 10 mg? PO QID 120 caps 3RF R10.9 - Unspecifie d abdominal pain ? Changed From omeprazole 20 mg? PO BID 14 d ays 28 caps 0RF A04.8 - Other spec ified bacterial in testinal infection s ? To omeprazole 20 mg? PO BID 60 c aps 3RF A04.8 - Other spec ified bacterial in testinal infection s ? LABS: Laboratory Tests 01/08/23 11:32 Stool H. pylori Ag negative TODAY'S VISIT Lithuanian #[id number] Eryn She continues to feel well!! She is very happy that the HP has been eradicated. She continues on omeprazole for her GERD and dicyclomine her IBS. Return office visit 6 months [facility] Medical History GERD (gastroesophageal reflux disease) Lumbar back pain Obesity Surgical History History of hernia surgery Family History Mother Cervical cancer Father Diabetes Family/Other Substance use disorder Mental health disorder Family/Other Breast cancer Maternal Uncle Prostate cancer Maternal Uncle Colon cancer Social History Housing: Apartment Alcohol intake: former Patient Tobacco Use Status: Former Tobacco user Tobacco use type: Cigarette e-Cigarette/Vaping Use: Never Used Second Hand Smoke Exposure: No service: No Current occupational status: 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, 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 Current occupational exposures/hazards: No Cognitive needs: No Hearing needs: No Vision needs: Yes Female Reproductive History Menstrual Age of Menarche: 12 Review of Systems Const Denies fatigue, Denies fever(s), Denies night sweats, Denies poor appetite and Denies weight loss Eyes Details: glasses Reports requires corrective lenses ENT Reports Normal hearing present, Denies dental pain, Denies dysphagia, Denies hearing loss, Denies mouth pain, Denies odynophagia, Denies throat swelling, Denies tongue swelling and Reports other (Dentition adequate) Card Reports no additional complaints Resp Reports no additional complaints GI Denies abdominal pain, Denies melena, Denies bloating, Denies hematochezia, Denies constipation, Reports GI cramping, Denies dysphagia, Denies excessive flatus, Denies early satiety, Reports heartburn, Reports diarrhea, Denies nausea, Denies odynophagia, Denies vomiting and Denies hematemesis Skin/Breast Denies pruritus, Denies lesions, Denies rash and Denies jaundice Neuro Reports Normal hearing present and Denies Abnormal speech present Endo Denies fatigue Aller/Immun Denies throat swelling and Denies tongue swelling Physical Exam Vital Signs: Last Vital Signs Pulse 92 01/28/23 15:16 BP 106/57 L 01/28/23 15:16 BMI result Body Mass Index 39.7 Const General: cooperative, no acute distress, well developed and well groomed Nutritional Appearance: well nourished and obese morbidly obese Orientation/consciousness: oriented to person, oriented to place and oriented to time Limitations: No language barrier HEENT Head: Yes normocephalic and Yes atraumatic Eyes General: appearance normal, both eyes and all related structures Pupils: Equal, round and reactive pupils present Neck Neck: Yes normal visual inspection and Yes no lymphadenopathy Thyroid: Thyroid normal Resp Effort & Inspection: normal respiratory effort and able to speak in complete sentences Auscultation: clear to auscultation bilaterally Cardio Rate: regular rate Rhythm: regular rhythm Heart sounds: Normal, physiologic split S2 sound present Peripheral pulses: radial pulses present and posterior tibial pulses present GI Inspection: No distended, Yes Abdominal panniculus present and Yes obesity Palpation (GI): Soft to palpation, nontender, no guarding, not rigid and No hepatosplenomegaly present Percussion: Yes normal to percussion Auscultation: normal bowel sounds Rectal Exam - Female: deferred Skin General skin exam: no rashes or lesions noted, turgor normal, skin not dry, no jaundice, No spider nevi and no striae Rashes: no rashes Nails: normal Neuro General: oriented to person, oriented to place and oriented to time Cranial nerves: Yes Equal, round and reactive pupils present and Yes Normal hearing present Speech: No Abnormal speech present Extrem General: Yes normal to inspection, No clubbing, No cyanosis and No edema Psych Appearance: grossly normal and well kempt Mental Status: mental status grossly normal Speech and movement: Normal speech and movement present Affect: normal affect Attitude: cooperative Thought process: Normal thought process present and not confabulating Thought content: Normal thought content present Insight: Limited insight present (Psych) Judgement: Limited judgement present (Psych) Assessment & Plan Assessment & Plan (1) GERD (gastroesophageal reflux disease): Code(s): K21.9 - Gastro-esophageal reflux disease without esophagitis Qualifiers: Esophagitis presence: esophagitis presence not specified Qualified Code(s): K21.9 - Gastro-esophageal reflux disease without esophagitis Plan: Lithuanian #[id number] Eryn She continues to feel well!! She is very happy that the HP has been eradicated. She continues on omeprazole for her GERD and dicyclomine her IBS. Return office visit 6 months (2) H. pylori infection: Comment: To date has failed quadruple therapy and Levaquin/amoxicillin rescue Code(s): A04.8 - Other specified bacterial intestinal infections Coding Level of Care Code Est Pt Level 3 (22694) Diagnoses GERD (gastroesophageal reflux disease) K21.9 Esophagitis presence: esophagitis presence not specified H. pylori infection A04.8
[2023-01-28 15:16] VITALS: BP 106/57; PULSE 92; BMI 39.7
== END 2023-01-28 15:37 | disposition home or self-care (01) ==
PROVIDERS: PCP Internal Medicine; Visit Provider Nurse Practitioner
DX: K21.9 Gastro-esophageal reflux disease without esophagitis (principal); A04.8 Other specified bacterial intestinal infections
CPT/HCPCS: 99213

== ENCOUNTER → 2023-01-28 15:11 | Outpatient (BNVA) | payer OTHER, SELFPAY | PROVIDERS: PCP Internal Medicine; Visit Provider Nurse Practitioner | DX: K21.9 Gastro-esophageal reflux disease without esophagitis (principal); A04.8 Other specified bacterial intestinal infections | CPT/HCPCS: 99212 ==

== ENCOUNTER 2023-02-19 12:25 | Outpatient (AMB) | payer OTHER, SELFPAY ==
[2023-02-19 14:58] VITALS: BP 106/62; PULSE 71; O2SAT 99
--- NOTE | 2023-02-19 14:58 | MHC.OFFWIV ---
Intake Vital Signs 02/19/23 14:58 Height 5 ft 6 in BP 106/62 Blood Pressure Location Lt brachial Position Sitting Pulse 71 Pulse Source Pulse Oximeter Pulse Oximetry (%) 99 Intake Visit Reasons: EP Neck pain Intake Note: pt is here for c/o neck pain 1 week denies injury, very painful untolerable Patient Tobacco Use Status: Former Tobacco user Allergies egg Allergy (Intermediate, Verified 02/19/23 15:00) vomitting, hives peanut Allergy (Mild, Verified 02/19/23 15:00) Abdominal Pain latex [LATEX] Adverse Reaction (Intermediate, Verified 02/19/23 15:00) rash HPI EP Neck pain HPI Details Patient is a 42-year-old female who comes to the walk-in clinic complaining of posterior right neck and shoulder area pain and stiffness, upon awakening with her arm underneath her. She states that she has developed some stiff feeling to the neck then, and has difficulty with range of motion due to the pain. She denies acute trauma otherwise. She does have a history of muscle spasms and feels like this is similar. No dizziness or headache, no right arm symptoms, and no other significant associated symptoms. 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, 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 Current occupational exposures/hazards: No Cognitive needs: No Hearing needs: No Vision needs: Yes Female Reproductive History Menstrual Age of Menarche: 12 Review of Systems Const All systems reviewed & are unremarkable except as noted in HPI and below Physical Exam Vital Signs: Last Vital Signs Pulse 71 02/19/23 14:58 BP 106/62 02/19/23 14:58 Pulse Ox 99 02/19/23 14:58 Neck Neck: No full ROM, Yes tender (Right lower cervical paraspinal tenderness radiating to the upper shoulder ), No tracheal deviation and Yes no JVD Back/Spine/Pelvis Other: Right trapezius firm and tender to palpation, full range of motion strength to the right arm, neurovascularly intact distally Cervical Spine: No Lhermitte's sign positive, pain with cervical ROM, cervical spasm, No Cervical spine tenderness and cervical ROM abnormal Assessment & Plan Assessment & Plan (1) Trapezius muscle spasm: Code(s): M62.838 - Other muscle spasm Plan: Patient has an apparent strain/spasm of the right trapezius and lower cervical paraspinal muscles. This is likely due to sleeping in an awkward position as it occurred when she woke up. She has no history of repetitive use to the arm or neck, and she denies any acute trauma. She has no tenderness over the vertebral spinous processes, and negative Spurling's. She states that she has some relief with an anti-inflammatory, and she can continue this, but I also added Flexeril for her. She has taken in the past and states that she did not have an of allergy to it, although it does have cross sensitivity to peanuts, which apparently has given her rash and caused mild GI upset in the past. She states that she does want to trial this again today, and we discussed heat, stretch and gentle massage to the area. Her family member is a massage therapist and states that she can help her with this. Patient does not have a heating pad, so we discussed making 1 at of rice and tube sock, to put in the microwave. She can follow up if her symptoms persist or worsen, as she might need physical therapy referral at that point. Medications: Changed From cyclobenzaprine 10 mg PO TID 30 days PRN 90 tabs 0RF muscle spasm To cyclobenzaprine 10 mg PO TID 10 days PRN 30 tabs 0RF muscle spasm Coding Level of Care Code Est Pt Level 4 (91058) Diagnoses Trapezius muscle spasm M62.838
== END 2023-02-19 15:09 | disposition home or self-care (01) ==
PROVIDERS: PCP Internal Medicine; Visit Provider Physician Assistant Medical
DX: M62.838 Other muscle spasm (principal)
CPT/HCPCS: 99051; 99214

== ENCOUNTER 2023-02-22 14:52 | Outpatient (AMB) | payer OTHER, SELFPAY ==
[2023-02-22 15:01] VITALS: BP 112/66; BMI 39.5
--- NOTE | 2023-02-22 15:01 | A.OFFVIS_ITS ---
Intake Vital Signs 02/22/23 15:01 Height 5 ft 6 in Weight 244 lb 11.41 oz BMI 39.5 BP 112/66 Intake Visit Reasons: Paragard removal and reinsertion Quality Process Engineer Required: Yes Quality Process Engineer Language: Greek Information Interpreted: non-clinical & clinical Director Instructional Material: Director Instructional Material Present Accompanied by: Self / Same As Patient Allergies egg Allergy (Intermediate, Verified 02/22/23 15:02) vomitting, hives peanut Allergy (Mild, Verified 02/22/23 15:02) Abdominal Pain latex [LATEX] Adverse Reaction (Intermediate, Verified 02/22/23 15:02) rash Medication List - Last Reconciled 02/22/23 by Mindy Marley CNM bupropion HCl 150 mg PO QAM 30 days cholecalciferol (vitamin D3) 25 mcg PO DAILY 90 days copper (ParaGard T 380A) intrauterine cyclobenzaprine 10 mg PO TID PRN 10 days dicyclomine 10 mg PO QID fluconazole 150 mg PO Q3D 2 doses naproxen 500 mg PO BID PRN 30 days omeprazole 20 mg PO BID Is last menstrual period known: Yes Last menstrual period: 02/22/23 HPI Paragard removal and reinsertion HPI Details Patient is here for her ParaGard removal and replacement. This has been rescheduled a number of times it was planned initially but a Actinomyces had been noticed on her Pap and so after lengthy discussion a culture for Actinomyces was done as it was not possible to remove the ParaGard IUD and leave her with no contraception in the meantime. The patient is asymptomatic for any infection. The culture was negative and despite several rescheduling says we will attempt removal and re insertion today. The patient just started her period and it is just essentially spotting but it normally is heavier on day 2 and 3 however it is very difficult to schedule because of her work schedule. 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, 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 Current occupational exposures/hazards: No Cognitive needs: No Hearing needs: No Vision needs: Yes Female Reproductive History Menstrual Age of Menarche: 12 Date of last menstrual period: 02/22/23 Physical Exam Vital Signs: Last Vital Signs BP 112/66 02/22/23 15:01 BMI result Body Mass Index 39.5 External Female Exam: normal external appearance Speculum Exam - Vagina: normal appearance of the vagina and normal vaginal discharge Speculum Exam - Cervix: normal appearance of the cervix Bimanual exam- vagina & uterus: normal bimanual exam, uterine size normal, consistency normal, uterine mobility normal, uterine shape normal and non-tender Bimanual Exam- Adnexa, other: normal adnexae, no masses and No adnexal tenderness Office Procedures IUD Insert/Removal Details Details: ---Patient is here for her IUD removal and insertion. Bimanual exam was done. Her uterus is firm, nontender, and appropriate sized, and is anteverted . The IUD strings were grasped with ring forceps, and as patient coughed the IUD was removed easily with 1 tug. ---The cervix was cleaned with Betadine. Tenaculum was placed on the cervix slowly to minimize cramping. The uterus was sounded slowly and gently she show a measurement of 7 and half cm. The IUD was removed from its package, after checking identifying information and lot dates and expiration dates and and gently inserted into the os, as per the IUD insertion procedure. The strings were then trimmed to 3-4 centimetres. The tenaculum was removed and gentle pressure applied with a swab, until any bleeding subsided from the tenaculum sites. The speculum was gently removed. The patient sat up. I Reviewed what to expect, and what indications would necessitate a call. Pt to call for fever, untoward pain or cramping. I reviewed any appropriate backup method. Pt to return for recheck as scheduled. 61380-UHC Insertion 82271-TIN Removal Procedure code (CPT) selection complete Office Meds ParaGard T 380A Performing Provider: Mindy Marley CNM Administered by: ZAY Hansen on 02/22/23 15:49 Dose Route Admin Location Lot Number Expiration Date NDC Supervisory Civil Engineer 1 device intrauterine c-obgyn [id number] 01/31/28 [address]-5 COOPERSURGICAL Results AMB Test Urine AMB Test Urine Negative Last Edit by Lazara Bruno CMA on 15:12 AMB Test Urine AMB Test Urine Negative Last Edit by ZAY Hansen on 02/22/23 15:12 Results Reviewed Results Reviewed: Laboratory Last Values [facility]st Clinic Negative 02/22/23 15:12 Tst Clinic Negative 02/22/23 15:12 Name:Sabra Yu Age/Sex: 42/F Attending: Mindy Marley CNM : 1980 Submitted by: Mindy Marley CNM Copies to: Laura Hill MD MR #: [id number] ? Status: DEP REF Collected: 07/06/22 Location: [facility] Received: 07/06/22 Interpretation Satisfactory for evaluation; acid-wash performed; partially obscuring inflammation. Negative for intraepithelial lesion or malignancy. Actinomyces. Coccobacilli consistent with shift in vaginal jeremy. HPV mRNA E6/E7:? NOT DETECTED This assay detects E6/E7 viral messenger RNA (mRNA) from 14 high-risk HPV types (16, 18, 31, 33, 35, 39, 45, 51, 52, 56, 58, 59, 66, 68) HPV testing performed by [facility], [place], [place].? See reference laboratory portion of the EMR for entire report. Clinical Information LMP: 07/03/22 Previous PAP test: 2016, WNL Material Received ThinPrep-Cervical Copies To ?? Mindy Marley CNM ?? [address] ?? [place] [address] ?? [phone] ?? Laura Hill MD ?? [address] ?? [place] [address] ?? [phone] Name: Sabra Dominguez Age/Sex: 42/F : 1980 Unit#: [id number] Attend Dr: Mindy Marley CNM Re11/10/22 Status: DEP REF Location: [facility] Disch: Specimen: [id number] Collected: 11/10/22-150 Status: COMP Req#: [id number] Received: 11/10/22-170 Source: Cervix Sp Desc: Subm Dr: Mindy Marley CNM Ordered: Actinomyces Cul Procedure Result Verified Site Actinomyces Culture Final 11/28/22-1540 QUM ACTINOMYCES CULTURE: Result: No Actinomyces isolated. PERFORMING SITE: [facility] [address] [address] Sales Account Specialist: Mira Moy M.D. Assessment & Plan Assessment & Plan (1) IUD (intrauterine device) in place: Comment: States paragard present for 15 years, desires replacement SEEPAP; ParaGard replaced 02/22/2023. Code(s): Z97.5 - Presence of (intrauterine) contraceptive device (2) Screening for cervical cancer: Comment: History of genital warts; 07/06/2022 Pap is negative with negative HPV positive Actinomyces and coccobacilli, has been treated for Gardnerella. Ultrasound secondary to occasional bloating is pending repeat exam at follow-up visit and consider cultures if necessary,(if tender and signs of PID, which were not present at the initial appointment) Code(s): Z12.4 - Encounter for screening for malignant neoplasm of cervix (3) Actinomyces infection: Comment: Incidental finding on Pap ultrasound is pending has ParaGard IUD review all at follow-up of ultrasound visit and repeat pelvic exam at that visit.; consider culture for Actinomyces./////-see extensive note from 11/10/2022.//11/22/22- Actinomyces cultures negative. Code(s): A42.9 - Actinomycosis, unspecified (4) Encounter for removal and reinsertion of intrauterine contraceptive device (IUD): Code(s): Z30.433 - Encounter for removal and reinsertion of intrauterine contraceptive device Plan This note is constructed using voice recognition software. While every effort has been made to ensure accuracy, analysis intern errors may have been included. Patient tolerated the procedure well though she did have some cramping with it it went very smoothly. Patient will call us for any signs and symptoms of expulsion or infection or pain or cramping she has a ibuprofen at home and may repeat her dose that she took right before coming 6 hours after that does. She may not need it. She she is to come back in 6 weeks for recheck. Orders: Orders AMB IUD Insertion/Removal - Patient Supply Today Z30.433 - Encounter for removal and reinsertion of intrauterine contraceptive device AMB HCG Urine Test Today Z32.02 - Encounter for test, result negative AMB HCG Urine Test Today Z32.02 - Encounter for test, result negative Coding Level of Care Code Est Pt Level 3 (64342) Diagnoses IUD (intrauterine device) in place Z97.5 Screening for cervical cancer Z12.4 Actinomyces infection A42.9 Encounter for removal and reinsertion of intrauterine contraceptive device (IUD) Z30.433 CPT Codes Details - CPT: 34007-NGX Insertion ([id number]) Details - CPT: 38341-HFZ Removal ([id number])
== END 2023-02-22 16:01 | disposition home or self-care (01) ==
LOC: HO.HWS 14:52
PROVIDERS: PCP Internal Medicine; Visit Provider Advanced Practice Midwife
DX: Z30.430 Encounter for insertion of intrauterine contraceptive device (principal); Z32.02 Encounter for pregnancy test, result negative
CPT/HCPCS: 58300; 58301

== ENCOUNTER → 2023-02-22 14:52 | Outpatient (BNVA) | payer OTHER, SELFPAY | PROVIDERS: PCP Internal Medicine; Visit Provider Advanced Practice Midwife | DX: Z30.433 Encounter for removal and reinsertion of intrauterine contraceptive device (principal) | CPT/HCPCS: 58300; 58301; 81025; J7300 ==

== ENCOUNTER 2023-05-11 11:22 | Emergency (ER) | payer OTHER, SELFPAY ==
--- NOTE | ~2023-05-11 | XR_ITS ---
EXAMINATION: XR HAND, RIGHT CLINICAL INFORMATION: Right hand pain COMPARISON: Radiographs 04/03/2018 TECHNIQUE: PA, lateral, and oblique views of the right hand. FINDINGS: Dorsal soft tissue swelling. No radiopaque foreign body. No acute osseous abnormality. XR/XR hand RT min 3V IMPRESSION: Dorsal soft tissue swelling. No fracture.
[2023-05-11 11:46] VITALS: BP 116/80; PULSE 91; RESP 18; TEMP 36.7; O2SAT 100; BMI 40.7
--- NOTE | 2023-05-11 11:48 | ED.UPPEXIN ---
HPI - Extremity Injury (Upper) General Chief Complaint: Extremity Injury, Upper Stated Complaint: R hand inj Time Seen by Provider: 05/11/23 14:35 Source: patient History of Present Illness HPI narrative: 43 years old presenting to the emergency room after a fall. Patient reports that she fell yesterday and hit her R hand onto a pole. Patient denies LOC. Was able to stand up and walk yesterday however despite use of ibuprofen last night pain is not improved and therefore presented today to rule out fracture. Prior to my visit patient had an x-ray in triage which was normal. Patient has swollen cold at the level of the 3rd digit of the right hand. There are no laceration or abrasion. There is swelling at the level of the 2nd knuckle. No chest pain, abdominal pain, headache nausea or vomiting. Patient has used ibuprofen yesterday but no analgesia today. Related Data Home Medications Medication Instructions Recorded Confirmed copper 380 square mm intrauterine intrauterine 07/06/22 02/22/23 device ([employer] Products[employer]ard T 380A) Previous Rx's Medication Instructions Recorded naproxen 500 mg tablet 500 mg PO BID PRN pain 30 days #60 05/12/22 tabs cholecalciferol (vitamin D3) 25 25 mcg PO DAILY 90 days #90 caps 09/13/22 mcg (1,000 unit) capsule bupropion HCl 150 mg 24 hr tablet, 150 mg PO QAM 30 days #30 tabs 12/19/22 extended release dicyclomine 10 mg capsule 10 mg PO QID #120 caps 12/24/22 omeprazole 20 mg capsule,delayed 20 mg PO BID #60 caps 12/24/22 release fluconazole 150 mg tablet 150 mg PO Q3D 2 doses #2 tabs 02/01/23 cyclobenzaprine 10 mg tablet 10 mg PO TID PRN muscle spasm 10 02/19/23 days #30 tabs Allergies Allergy/AdvReac Type Severity Reaction Status Date / Time egg Allergy Intermediate vomitting, Verified 02/22/23 15:02 hives peanut Allergy Mild Abdominal Verified 02/22/23 15:02 Pain fish derived [fish] Allergy Anaphylaxis Verified 05/11/23 11:46 poppyseed oil Allergy Anaphylaxis Verified 05/11/23 11:46 sesame seed Allergy Anaphylaxis Verified 05/11/23 11:45 latex [LATEX] AdvReac Intermediate rash Verified 08/22/23 15:02 Review of Systems Review of Systems: Yes all other systems are reviewed and are negative [facility] Past Medical History Medical History GERD (gastroesophageal reflux disease) Lumbar back pain Obesity Surgical History History of hernia surgery Family History Family History Mother Cervical cancer Father Diabetes Family/Other Substance use disorder Mental health disorder Family/Other Breast cancer Maternal Uncle Prostate cancer Maternal Uncle Colon cancer Social History Social History Housing: Apartment Alcohol intake: former Patient Tobacco Use Status: Former Tobacco user Tobacco use type: Cigarette e-Cigarette/Vaping Use: Never Used Second Hand Smoke Exposure: No service: No Current occupational status: 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 no deficit of flexion or extension. HEENT: Atraumatic, No Exudate or Pharyngeal Erythema Resp: Normal Breath sounds bilaterally Cardio: Regular rate and Rhythm, Normal S1, S2 ABD: Abd soft, non tender, no guarding or rebound. Normal Bowel sounds. : No cva tenderness Neuro: Alert, oriented x4, PERRL Strenght 5/5 on all extremities Sensation is preserved in both lower and upper extremities Index to nose: normal Cranial Nerves II-XII grossly intact No dysarthria, or aphasia No neglet. Visual alvares are normal bilaterally Psych: Cooperative, NO SI Course Course Course Narrative: This is an RME: Additional HPI, ROS, PE not included below will be deferred to primary provider. This is a 43-year-old female presenting to the emergency department with complaints of right hand pain status post mechanical fall which occurred yesterday. Patient states that her knees gave out and she accidentally struck her right hand on a metal pole. She has obvious swelling to the dorsum of her right hand with tenderness palpation. Vital signs within normal limits. Plan: X-ray right hand Medications Administered Discontinued Medications Generic Name Dose Route Start Last Admin Trade Name Mike PRN Reason Stop Dose Admin Acetaminophen 975 mg 05/11/23 14:46 05/11/23 14:52 Acetaminophen 325 Mg Tablet PO 05/11/23 14:47 975 mg ONCE ONE Administration Ibuprofen 600 mg 05/11/23 14:46 05/11/23 14:52 Ibuprofen 600 Mg Tablet PO 05/11/23 14:47 600 mg ONCE ONE Administration Medical Decision Making Medical Decision Making MDM Narrative: 43 years old presents emergency room with isolated injury of the right hand. Patient reports pain not resolved after ibuprofen however x-ray that I personally reviewed showed no fracture. At this time it is possible that patient's symptoms are secondary to contusion. Will give patient analgesia, recommended the patient to stay home for few days. Follow-up with primary care physician a few days. Differential Diagnosis contusion, fracture, sprain, ligament injury Admission/Observation Consideration of admission/observation: Escalation of care including admission/observation considered Independent Interpretation I performed an independent interpretation of an: Plain X-Ray (no acute fracture) Radiology Impression Discussion of test interpretation with radiology: I have reviewed the radiologist's reading. Discharge Plan Discharge Clinical Impression: Injury of hand, right Patient Disposition: Home, Self-Care Additional Instructions: You were seen in the emergency room for a right and injury. X-ray did not show any fracture and at this time he did not require explained. Swelling and pain should improve within the next few days. Take ibuprofen 600 mg every 8 hours for no longer than 5 days for pain control In addition you can use Tylenol 1000 mg every 6 hours if pain is not controlled. Follow-up with your primary care doctor in a week that You may return to work on Tuesday. Prescriptions: No Action bupropion HCl 150 mg tablet extended release 24 hr 150 mg PO QAM 30 Days Qty: 30 0RF fluconazole 150 mg tablet 150 mg PO Q3D 0 Days Qty: 2 0RF Rx Instructions: may repeat second dose 72 hrs after first dose if symptoms persist cholecalciferol (vitamin D3) 25 mcg (1,000 unit) capsule 25 mcg PO DAILY 90 Days Qty: 90 1RF cyclobenzaprine 10 mg tablet 10 mg PO TID PRN (Reason: muscle spasm) 10 Days Qty: 30 0RF naproxen 500 mg tablet 500 mg PO BID PRN (Reason: pain) 30 Days Qty: 60 1RF ParaGard T 380A 380 square mm intrauterine device intrauterine omeprazole 20 mg capsule,delayed release(DR/EC) 20 mg PO BID Qty: 60 3RF dicyclomine 10 mg capsule 10 mg PO QID Qty: 120 3RF Stand Alone Forms: Work/School Release
[2023-05-11] MEDS: Acetaminophen 325 MG TABLET 975 MG PO (14:52)
[2023-05-11] MEDS: Ibuprofen 600 MG TABLET PO (14:52)
--- NOTE | 2023-05-11 14:55 | PC.NURSE ---
pt medicated per SEP- for04/12 right hand [pain
== END 2023-05-11 15:07 | disposition home or self-care (01) ==
LOC: HO.ED 15:01
PROVIDERS: Emergency Provider Student in an Organized Health Care Education/Training Program; PCP Internal Medicine
DX: S69.91XA Unspecified injury of right wrist, hand and finger(s), initial encounter (principal); W01.10XA Fall on same level from slipping, tripping and stumbling with subsequent striking against unspecified object, initial encounter; Y93.9 Activity, unspecified; Y92.9 Unspecified place or not applicable; Y99.9 Unspecified external cause status; Z79.899 Other long term (current) drug therapy; Z87.891 Personal history of nicotine dependence
CPT/HCPCS: 73130; 99283

== ENCOUNTER 2023-06-23 14:55 | Outpatient (AMB) | payer OTHER, SELFPAY ==
[2023-06-23 15:00] VITALS: BP 130/80; BMI 40.2
--- NOTE | 2023-06-23 15:00 | A.OFFPC_ITS ---
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 Required: No Accompanied by: Self / Same As Patient Allergies egg Allergy (Intermediate, Verified 06/23/23 15:07) vomitting, hives peanut Allergy (Mild, Verified 06/23/23 15:07) Abdominal Pain fish derived [fish] Allergy (Verified 06/23/23 15:07) Anaphylaxis poppyseed oil Allergy (Verified 06/23/23 15:07) Anaphylaxis sesame seed Allergy (Verified 06/23/23 15:07) Anaphylaxis latex [LATEX] Adverse Reaction (Intermediate, Verified 06/23/23 15:07) rash Medication List - Last Reconciled 06/23/23 by Laura Urbano MD cholecalciferol (vitamin D3) 25 mcg PO DAILY 90 days copper (ParaGard T 380A) intrauterine cyclobenzaprine 10 mg PO TID PRN 10 days dicyclomine 10 mg PO QID fluconazole 150 mg PO Q3D 2 doses naproxen 500 mg PO BID PRN 30 days omeprazole 20 mg PO BID 90 days Tobacco use date assessed: 09/13/22 Dental Screening Dental Screen Date: 06/23/23 Did you have a dental visit in the last 12 months?: No Did you have a dental problem in the last 6 months where you did not have access to dental care?: No Was dental information given to patient?: Patient has dentist HPI HPI Comments History of Present Illness Details This is a 43-year-old female with mild major depression and morbid obesity that comes for physical exam. Depression is in remission. She is morbidly obese with a BMI of 40.2 and declines weight loss surgery. Last mammogram was June 2022 and was normal. Last Pap smear was 2022 and was normal with HPV negative. Has never had a colonoscopy and shows Cologuard to screen for colon cancer. No chest pain or shortness of breath. Complains of bilateral knee pain and weakness. [facility] Medical History (Updated 06/23/23 @ 15:19 by Laura Urbano MD) Lumbar back pain GERD (gastroesophageal reflux disease) Obesity Surgical History History of hernia surgery Family History Mother Cervical cancer Father Diabetes Family/Other Substance use disorder Mental health disorder Family/Other Breast cancer Maternal Uncle Prostate cancer Maternal Uncle Colon cancer Social History Housing: Apartment Alcohol intake: former Patient Tobacco Use Status: Former Tobacco user Tobacco use type: Cigarette e-Cigarette/Vaping Use: Never Used Second Hand Smoke Exposure: No service: No Current occupational status: 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 Parrish Buckley, Miya Aleman, Valentin Rothman and colleagues, with an educational cas from [employer]. Review of Systems Const All systems reviewed & are unremarkable except as noted in HPI and below Eyes Reports no additional complaints, Denies change in vision and Denies other visual disturbances Card Denies chest pain at rest, Denies chest pain with activity, Denies edema, Denies irregular heart rhythm, Denies claudication, Denies dyspnea, Denies dyspnea on exertion, Denies orthopnea, Denies paroxysmal nocturnal dyspnea and Denies slow heart rate Resp Denies cough, Denies dyspnea and Denies dyspnea on exertion GI Denies abdominal pain, Denies change in bowel habits, Denies excessive flatus, Denies nausea and Denies vomiting Denies urinary incontinence, Denies urinary hesitancy and Denies urinary urgency Musc Denies abnormal gait, Denies atrophy, Denies deformity and Denies limited range of motion Skin/Breast Denies bleeding lesions, Denies changing lesions and Denies rash Neuro Denies abnormal gait, Denies behavioral changes, Denies confusion and Denies lack of coordination Psych Denies behavioral changes and Denies confusion Physical exam (Primary Care) Vital Signs: Last Vital Signs BP 130/80 06/23/23 15:00 BMI result Body Mass Index 40.2 Tobacco/Smoking Status: Tobacco use Status Tobacco use date assessed 09/13/22 06/23/23 15:05 Patient Tobacco Use Status Former Tobacco user 06/23/23 15:05 Tobacco use type Cigarette 06/23/23 15:05 e-Cigarette/Vaping Use Never Used 06/23/23 15:05 Thrive Assessment: Date of Thrive Assessment Date Thrive assessed 09/13/22 06/23/23 15:05 Const General: No confusion Orientation/consciousness: patient oriented x3 and No confusion HENMT Head: Yes normal to inspection, Yes normocephalic and Yes atraumatic Ears: external ears normal Eyes General: appearance normal, both eyes and all related structures Eyelids: Yes eyelids normal Conjunctivae: conjunctivae normal Neck Neck: Yes normal visual inspection and Yes supple Resp Effort & Inspection: normal respiratory effort Auscultation: clear to auscultation bilaterally Cardio Jugular venous distension: no JVD Rate: regular rate Rhythm: regular rhythm Heart sounds: S1 normal heart sound present and S2 normal heart sound present GI Inspection: Yes normal to inspection Palpation (GI): Soft to palpation and nontender Auscultation: normal bowel sounds Skin General skin exam: no rashes or lesions noted Neuro General: patient oriented x3, no focal motor deficits and No confusion Extrem General: Yes full ROM Psych Appearance: grossly normal Office Procedures Flu Questionnaire Does the patient have a severe egg allergy?: No Immunizations flu vacc [id number] 6mos up(PF) 60 mcg(15 mcgx4)/0.5 mL IM syringe Performing Provider: Laura Urbano MD [facility] Documented (not given) by: ZAY Mcpherson on 06/23/23 15:05 Reason Not Given: Patient Refused Assessment and Plan Assessment & Plan (1) Physical exam: Code(s): Z00.00 - Encounter for general adult medical examination without abnormal findings Plan: Repeat in a year. (2) Morbid obesity with BMI of 40.0-44.9, adult: Code(s): E66.01 - Morbid (severe) obesity due to excess calories; Z68.41 - Body mass index [BMI] 40.0-44.9, adult Plan: Start diet and exercise. BMI goal is less than 30. (3) Mild major depression: Code(s): F32.0 - Major depressive disorder, single episode, mild Plan: In remission. Orders: Orders Influenza [id number] Immunization 06/23/23 Z23 - Encounter for immunization Vitamin D 25-OH Total 06/23/23 E55.9 - Vitamin D deficiency, unspecified Comprehensive [place]. Panel Fast 06/23/23 Z00.00 - Encounter for general adult medical examination without abnormal findings Lipid Panel 06/23/23 Z00.00 - Encounter for general adult medical examination without abnormal findings RT home sleep study 06/23/23 R40.0 - Somnolence Thyroid Stimulating Hormone 06/23/23 E66.9 - Obesity, unspecified Referrals Cologuard Test Z00.00 - Encounter for general adult medical examination without abnormal findings, Z12.11 - Encounter for screening for malignant neoplasm of colon, Z12.12 - Encounter for screening for malignant neoplasm of rectum Orthopedics Referral M25.561 - Pain in right knee, M25.562 - Pain in left knee Coding Level of Care Code Est Pt Prev Care 40-64y(86740) Diagnoses Physical exam Z00.00 Morbid obesity with BMI of 40.0-44.9, adult E66.01; Z68.41 Mild major depression F32.0 Time Spent (min) 32
== END 2023-06-23 15:26 | disposition home or self-care (01) ==
PROVIDERS: Visit Provider Internal Medicine
DX: Z00.00 Encounter for general adult medical examination without abnormal findings (principal); E66.01 Morbid (severe) obesity due to excess calories; Z68.41 Body mass index [BMI] 40.0-44.9, adult; F32.0 Major depressive disorder, single episode, mild
CPT/HCPCS: 99396

== ENCOUNTER 2023-06-24 14:09 | Outpatient (AMB) | payer OTHER, SELFPAY ==
--- NOTE | 2023-06-24 14:14 | A.OFFVIS_ITS ---
Intake Vital Signs 06/24/23 14:15 Height 5 ft 7 in Weight 252 lb BMI 39.5 BP 124/70 Intake Visit Reasons: IUD Check/ok per [facility] Office Manager Required: Yes Clinic Office Manager Language: Maltese Information Interpreted: non-clinical & clinical [employer] Consultant: [employer] Consultant Present (Tila) Allergies egg Allergy (Intermediate, Verified 06/24/23 14:19) vomitting, hives peanut Allergy (Mild, Verified 06/24/23 14:19) Abdominal Pain fish derived [fish] Allergy (Verified 06/24/23 14:19) Anaphylaxis poppyseed oil Allergy (Verified 06/24/23 14:19) Anaphylaxis sesame seed Allergy (Verified 06/24/23 14:19) Anaphylaxis latex [LATEX] Adverse Reaction (Intermediate, Verified 06/24/23 14:19) rash Medication List - Last Reconciled 06/24/23 by Mindy Marley CNM cholecalciferol (vitamin D3) 25 mcg PO DAILY 90 days copper (ParaGard T 380A) intrauterine cyclobenzaprine 10 mg PO TID PRN 10 days dicyclomine 10 mg PO QID fluconazole 150 mg PO Q3D 2 doses naproxen 500 mg PO BID PRN 30 days omeprazole 20 mg PO BID 90 days Is last menstrual period known: No Post menopausal: No HPI IUD Check/ok per Mindy HPI Details Patient is here for her ParaGard IUD check her ParaGard was inserted some months ago. She feels she is not having any problem with it whatsoever she does notice that for the last couple months sometime she gets a little bit of spotting for the week before her. And then the period comes on fully it is a little bit heavier than her periods used to be but she is fine with it and it is within the range of normal for her. She is not feeling like it is too heavy at all. 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, 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 Current occupational exposures/hazards: No Cognitive needs: No Hearing needs: No Vision needs: Yes Female Reproductive History Menstrual Age of Menarche: 12 control method: copper IUCD Date of last pap smear: 07/06/22 (negative) Physical Exam Vital Signs: Last Vital Signs BP 124/70 06/24/23 14:15 BMI result Body Mass Index 39.5 Results Reviewed Results Reviewed: Name: Sabra Dominguez Age/Sex: 42/F Attending: Mindy Marley CNM : 1980 Submitted by: Mindy Marley CNM Copies to: Laura Hill MD MR #: [id number] Status: DEP REF Collected: 07/06/22 Location: [facility] Received: 07/06/22 Interpretation Satisfactory for evaluation; acid-wash performed; partially obscuring inflammation. Negative for intraepithelial lesion or malignancy. Actinomyces. Coccobacilli consistent with shift in vaginal jeremy. HPV mRNA E6/E7: NOT DETECTED This assay detects E6/E7 viral messenger RNA (mRNA) from 14 high-risk HPV types (16, 18, 31, 33, 35, 39, 45, 51, 52, 56, 58, 59, 66, 68) HPV testing performed by [facility], [place], [place]. See reference laboratory portion of the EMR for entire report. Clinical Information LMP: 07/03/22 Previous PAP test: 2016, WNL Material Received ThinPrep-Cervical Copies To Mindy Marley CNM [address] [place] [address] [address] [place] [address] Laura Hill MD [address] [place] [address] [address] [place] [address] Electronically Signed By: Jayson Castro MD 07/15/221826 The Pap Test is a screening procedure with the inherent possibility Assessment & Plan Assessment & Plan (1) IUD (intrauterine device) in place: Comment: States paragard present for 15 years, desires replacement SEEPAP; ParaGard replaced 02/22/2023. Code(s): Z97.5 - Presence of (intrauterine) contraceptive device Plan Patient has essentially no problems with the ParaGard IUD she is happy with it and it is working well for her and the periods are not to have even though even if she counts the days of spotting before the days of the. It is sort of lasting longer and a little bit heavier but she is fine with it. We will see her in a year her Pap smear was done 11 and half months ago and was negative and she has never had an abnormal so we can see her in about a year. Reviewed that if she ever found that she was getting very heavy periods and they were becoming on manageable than she may want to consider a Mirena IUD instead but she is happy with this. She is busy getting ready for for [employer] prep. Coding Level of Care Code Est Pt Level 3 (63819) Diagnoses IUD (intrauterine device) in place Z97.5
[2023-06-24 14:15] VITALS: BP 124/70; BMI 39.5
== END 2023-06-24 14:41 | disposition home or self-care (01) ==
LOC: HO.HWSM 14:09
PROVIDERS: PCP Internal Medicine; Visit Provider Advanced Practice Midwife
DX: Z97.5 Presence of (intrauterine) contraceptive device (principal)
CPT/HCPCS: 99213

== ENCOUNTER → 2023-06-24 14:09 | Outpatient (BNVA) | payer OTHER, SELFPAY | PROVIDERS: PCP Internal Medicine; Visit Provider Advanced Practice Midwife | DX: Z97.5 Presence of (intrauterine) contraceptive device (principal) | CPT/HCPCS: 99212 ==

== ENCOUNTER 2023-07-09 09:01 | Outpatient (REF) | payer OTHER, SELFPAY | END 2023-07-09 09:02 | disposition home or self-care (01) | LOC: HO.LAB 09:01 | PROVIDERS: PCP Internal Medicine; Visit Provider Internal Medicine | DX: Z00.00 Encounter for general adult medical examination without abnormal findings (principal); E55.9 Vitamin D deficiency, unspecified; E66.9 Obesity, unspecified | CPT/HCPCS: 36415; 80053; 80061; 82306; 84443 ==

== ENCOUNTER 2023-07-29 15:50 | Outpatient (AMB) | payer OTHER, SELFPAY ==
--- NOTE | 2023-07-29 15:56 | A.OFFVIS_ITS ---
Intake Vital Signs 07/29/23 15:58 Height 5 ft 6 in Weight 253 lb 8.505 oz BMI 40.9 BP 118/59 L Blood Pressure Location Lt brachial Position Sitting Pulse 84 Intake Visit Reasons: Follow up GERD Intake Note: Patient returns to in office visit today in 6 months follow up of GERD. CC: Patient states that before Karsten she was having gastritis but she is doing well now. Denies any new GI concerns or symptoms. Allergies egg Allergy (Intermediate, Verified 08/02/23 14:53) vomitting, hives peanut Allergy (Mild, Verified 08/02/23 14:53) Abdominal Pain fish derived [fish] Allergy (Verified 08/02/23 14:53) Anaphylaxis poppyseed oil Allergy (Verified 08/02/23 14:53) Anaphylaxis sesame seed Allergy (Verified 08/02/23 14:53) Anaphylaxis latex [LATEX] Adverse Reaction (Intermediate, Verified 08/02/23 14:53) rash HPI Follow up GERD HPI Details Assessment & Plan (1) GERD (gastroesophageal reflux diseas e): Code(s): K21.9 - Gastro-esophageal reflux disease without esophagitis Qualifiers: Esophagitis presence: esophagitis presence not specified Qualified Code(s): K21.9 - Gastro-esophageal reflux disease without esophagitis Plan: Bahamian #[id number] Eryn She continues to feel well!! She is very happy that the HP has been eradicated. She continues on omeprazole for her GERD and dicyclomine her IBS. Return office visit 6 months (2) H. pylori infection: Comment: To date has failed quadruple therapy and Levaquin/amoxicillin rescue Code(s): A04.8 - Other specified bacterial intestinal infections TODAYS VISIT Bahamian #Елена Live She had a bad attack of her gastrits in June, but she says the medicines I gave her resolved it. She ate a buffalo sauce which set it off. This prompts a discussion about foods to avoid when you have severe GERD and she says she will never eat those again! She called and I rx'ed omeprazole and dicyclomine with excellent relief. She says that her primary care, Dr. Wu ordered a Cologuard test since she just turned 43. It does not appear that the results are yet in her chart but I will ask her about at the next visit. She had a maternal uncle who had colon polyps and perhaps a spot of cancer. ROV 6 mos. [facility] Medical History Encounter for removal and reinsertion of intrauterine contraceptive device (IUD) Screen for sexually transmitted diseases Well woman exam with routine gynecological exam Physical exam Hospital discharge follow-up Right knee pain Left knee pain Lumbar back pain Abdominal cramping Abdominal bloating Upper abdominal pain Obesity GERD (gastroesophageal reflux disease) Surgical History History of hernia surgery Family History Mother Cervical cancer Father Diabetes Family/Other Substance use disorder Mental health disorder Family/Other Breast cancer Maternal Uncle Prostate cancer Maternal Uncle Colon cancer Social History Housing: Apartment Alcohol intake: former Patient Tobacco Use Status: Former Tobacco user Tobacco use type: Cigarette e-Cigarette/Vaping Use: Never Used Second Hand Smoke Exposure: No service: No Current occupational status: 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, 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 Current occupational exposures/hazards: No Cognitive needs: No Hearing needs: No Vision needs: Yes Female Reproductive History Menstrual Age of Menarche: 12 Review of Systems Const Denies fatigue, Denies fever(s), Denies night sweats, Denies poor appetite and Denies weight loss Eyes Details: glasses Reports requires corrective lenses ENT Reports Normal hearing present, Denies dental pain, Denies dysphagia, Denies hearing loss, Denies mouth pain, Denies odynophagia, Denies throat swelling, Denies tongue swelling and Reports other (Dentition adequate) Card Reports no additional complaints Resp Reports no additional complaints GI Details: Denies abdominal pain, Denies melena, Denies bloating, Denies hematochezia, Denies constipation, Reports GI cramping, Denies dysphagia, Denies excessive flatus, Denies early satiety, Reports heartburn, Denies diarrhea, Denies nausea, Denies odynophagia, Denies vomiting and Denies hematemesis Skin/Breast Denies pruritus, Denies lesions, Denies rash and Denies jaundice Neuro Reports Normal hearing present and Denies Abnormal speech present Endo Denies fatigue Aller/Immun Denies throat swelling and Denies tongue swelling Physical Exam Vital Signs: Last Vital Signs Pulse 84 07/29/23 15:58 BP 118/59 L 07/29/23 15:58 BMI result Body Mass Index 40.9 Const General: cooperative, no acute distress, well developed and well groomed Nutritional Appearance: well nourished and obese morbidly obese Orientation/consciousness: oriented to person, oriented to place and oriented to time Limitations: language barrier HEENT Head: Yes normocephalic and Yes atraumatic Eyes General: appearance normal, both eyes and all related structures Pupils: Equal, round and reactive pupils present Neck Neck: Yes normal visual inspection and Yes no lymphadenopathy Thyroid: Thyroid normal Resp Effort & Inspection: normal respiratory effort and able to speak in complete sentences Auscultation: clear to auscultation bilaterally Cardio Rate: regular rate Rhythm: regular rhythm Heart sounds: Normal, physiologic split S2 sound present Peripheral pulses: radial pulses present and posterior tibial pulses present GI Inspection: No distended, Yes Abdominal panniculus present and Yes obesity Palpation (GI): Soft to palpation, nontender, no guarding, not rigid and No hepatosplenomegaly present Percussion: Yes normal to percussion Auscultation: normal bowel sounds Rectal Exam - Female: deferred Skin General skin exam: no rashes or lesions noted, turgor normal, skin not dry, no jaundice, No spider nevi and no striae Rashes: no rashes Nails: normal Neuro General: oriented to person, oriented to place and oriented to time Cranial nerves: Yes Equal, round and reactive pupils present and Yes Normal hearing present Speech: No Abnormal speech present Extrem General: Yes normal to inspection, No clubbing, No cyanosis and No edema Psych Appearance: grossly normal and well kempt Mental Status: mental status grossly normal Speech and movement: Normal speech and movement present Affect: normal affect Attitude: cooperative Thought process: Normal thought process present and not confabulating Thought content: Normal thought content present Insight: Limited insight present (Psych) Judgement: Limited judgement present (Psych) Assessment & Plan Assessment & Plan (1) GERD (gastroesophageal reflux disease): Code(s): K21.9 - Gastro-esophageal reflux disease without esophagitis Qualifiers: Esophagitis presence: esophagitis presence not specified Qualified Code(s): K21.9 - Gastro-esophageal reflux disease without esophagitis (2) H. pylori infection: Comment: Eradication confirmed 01/2023 with stool antigen after rifabutin/amox therapy, failed quadruple therapy and Levaquin/amoxicillin rescue Code(s): A04.8 - Other specified bacterial intestinal infections Plan Bah[place]ian #Елена Live She had a bad attack of her gastrits in June, but she says the medicines I gave her resolved it. She ate a buffalo sauce which set it off. This prompts a discussion about foods to avoid when you have severe GERD and she says she will never eat those again! She called and I rx'ed omeprazole and dicyclomine with excellent relief. She says that her primary care, Dr. Wu ordered a Cologuard test since she just turned 43. It does not appear that the results are yet in her chart but I will ask her about at the next visit. She had a maternal uncle who had colon polyps and perhaps a spot of cancer. ROV 6 mos. Medications: Refilled dicyclomine 10 mg PO QID 120 caps 6RF R10.9 - Unspecified abdominal pain omeprazole 20 mg PO BID 180 caps 3RF 90 days A04.8 - Other specified bacterial intestinal infections Coding Level of Care Code Est Pt Level 3 (03553) Diagnoses Gastroesophageal reflux disease, unspecified whether esophagitis present K21.9 Esophagitis presence: esophagitis presence not specified H. pylori infection A04.8
[2023-07-29 15:58] VITALS: BP 118/59; PULSE 84; BMI 40.9
== END 2023-07-29 16:18 | disposition home or self-care (01) ==
PROVIDERS: PCP Internal Medicine; Visit Provider Nurse Practitioner
DX: K21.9 Gastro-esophageal reflux disease without esophagitis (principal); A04.8 Other specified bacterial intestinal infections
CPT/HCPCS: 99213

== ENCOUNTER → 2023-07-29 15:50 | Outpatient (BNVA) | payer OTHER, SELFPAY | PROVIDERS: PCP Internal Medicine; Visit Provider Nurse Practitioner | DX: K21.9 Gastro-esophageal reflux disease without esophagitis (principal); A04.8 Other specified bacterial intestinal infections | CPT/HCPCS: 99212 ==

== ENCOUNTER 2023-08-02 14:50 | Outpatient (REF) | payer OTHER, SELFPAY ==
[2023-08-03 11:13] LABS: CT PCR NOT DETECTED (Not Detect.); NG PCR NOT DETECTED (Not Detect.)
[2023-08-03 13:13] LABS: BV Int Neg Control Negative (Negative); BV Int Pos Control Positive (Positive)
== END 2023-08-02 14:51 | disposition home or self-care (01) ==
LOC: HO.LAB 14:50
PROVIDERS: PCP Internal Medicine; Visit Provider Advanced Practice Midwife
DX: Z01.419 Encounter for gynecological examination (general) (routine) without abnormal findings (principal); E66.01 Morbid (severe) obesity due to excess calories; Z68.41 Body mass index [BMI] 40.0-44.9, adult; A42.9 Actinomycosis, unspecified; Z97.5 Presence of (intrauterine) contraceptive device; Z20.2 Contact with and (suspected) exposure to infections with a predominantly sexual mode of transmission; Z79.899 Other long term (current) drug therapy
CPT/HCPCS: 0353U; 87480; 87510; 87660; 99396

== ENCOUNTER 2023-08-02 14:50 | Outpatient (AMB) | payer OTHER, SELFPAY ==
[2023-08-02 14:52] VITALS: BP 110/70; BMI 41.0
--- NOTE | 2023-08-02 14:52 | A.OFFVIS_ITS ---
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 Present Allergies egg Allergy (Intermediate, Verified 08/02/23 14:53) vomitting, hives peanut Allergy (Mild, Verified 08/02/23 14:53) Abdominal Pain fish derived [fish] Allergy (Verified 08/02/23 14:53) Anaphylaxis poppyseed oil Allergy (Verified 08/02/23 14:53) Anaphylaxis sesame seed Allergy (Verified 08/02/23 14:53) Anaphylaxis latex [LATEX] Adverse Reaction (Intermediate, Verified 08/02/23 14:53) rash Medication List - Last Reconciled 08/02/23 by Mindy Marley CNM copper (ParaGard T 380A) intrauterine cyclobenzaprine 10 mg PO TID PRN 10 days dicyclomine 10 mg PO QID naproxen 500 mg PO BID PRN 30 days omeprazole 20 mg PO BID 90 days Is last menstrual period known: Yes Last menstrual period: 07/15/23 Do you need a note to return to daycare/school/sports/work: No HPI 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 She is not having any problems with the ParaGard IUD she likes it very much she gets her regular periods. 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 She struggles with her weight and now she has been diagnosed as prediabetic she is having problems with her right knee which is very painful and swollen and has fluid around it. Additionally she is having problems with snoring and her has trouble sleeping at night because of it. She has a sleep study scheduled coming up and she has fasting blood work to do on Tuesday morning which is her only morning available to do it. This blood work is to begin the process of evaluation for the weight management program and she is thinking about getting a gastric sleeve done. Her father was diabetic and she thinks he of it so she does not want to progress 2 diabetes. She has not worried about STDs but is open to getting tested for everything while she is here. She said she had an appointment for mammogram in June but she had to miss it for some reason. [facility] Medical History Encounter for removal and reinsertion of intrauterine contraceptive device (IUD) Screen for sexually transmitted diseases Well woman exam with routine gynecological exam Physical exam Hospital discharge follow-up Right knee pain Left knee pain Lumbar back pain Abdominal cramping Abdominal bloating Upper abdominal pain Obesity GERD (gastroesophageal reflux disease) Surgical History History of hernia surgery Family History Mother Cervical cancer Father Diabetes Family/Other Substance use disorder Mental health disorder Family/Other Breast cancer Maternal Uncle Prostate cancer Maternal Uncle Colon cancer Social History Housing: Apartment Alcohol intake: former Patient Tobacco Use Status: Former Tobacco user Tobacco use type: Cigarette e-Cigarette/Vaping Use: Never Used Second Hand Smoke Exposure: No service: No Current occupational status: 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, 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 Current occupational exposures/hazards: No Cognitive needs: No Hearing needs: No Vision needs: Yes Female Reproductive History Menstrual Age of Menarche: 12 Duration of menses: 3-5 days Date of last menstrual period: 07/15/23 control method: copper IUCD Total pregnancies: 2 Full term: 2 Date of last pap smear: 07/06/22 (previous ,2016 neg.) History of abnormal pap smear: No Physical Exam Vital Signs: Last Vital Signs BP 110/70 08/02/23 14:52 BMI result Body Mass Index 41.0 Const General: healthy appearing, comfortable, no acute distress, well developed and alert Nutritional Appearance: average body habitus Orientation/consciousness: patient oriented x3 Limitations: no limitations HEENT Head: Yes normocephalic Neck Neck: Yes normal visual inspection Chest Chest palpation & inspection: normal inspection of the chest Breast/axilla inspection: normal inspection of the breasts and normal inspection of the axillae Breast/axilla palpation: normal palpation of the breasts and normal palpation of the axillae Resp Effort & Inspection: normal respiratory effort GI Inspection: Yes normal to inspection, No Abdominal wall edema and No distended Palpation (GI): Soft to palpation and nontender Other: External exam within normal limits vagina pink and moist cervix multiparous with ParaGard IUD long close thick mobile nontender uterus nontender mobile adnexa nontender not enlarged good tone with Kegel. General: Yes bladder normal to palpation External Female Exam: normal external appearance and normal appearance of the urethra Speculum Exam - Vagina: normal appearance of the vagina, normal palpation and normal vaginal discharge Speculum Exam - Cervix: normal appearance of the cervix, normal palpation and nontender Bimanual exam- vagina & uterus: normal bimanual exam, normal palpation, uterine size normal, bladder normal to palpation, consistency normal, normal palpation, uterine mobility normal, uterine shape normal, No Cervical tenderness present, non-tender and no cervical motion tenderness Bimanual Exam- Adnexa, other: normal adnexae, no masses, normal and No adnexal tenderness Neuro General: patient oriented x3 Assessment & Plan Assessment & Plan (1) Morbid obesity with BMI of 40.0-44.9, adult: Code(s): E66.01 - Morbid (severe) obesity due to excess calories; Z68.41 - Body mass index [BMI] 40.0-44.9, adult (2) Actinomyces infection: Comment: Incidental finding on Pap ultrasound is pending has ParaGard IUD review all at follow-up of ultrasound visit and repeat pelvic exam at that visit.; consider culture for Actinomyces./////-see extensive note from 11/10/2022.//11/22/22- Actinomyces cultures negative. Code(s): A42.9 - Actinomycosis, unspecified (3) IUD (intrauterine device) in place: Comment: States paragard present for 15 years, desires replacement SEEPAP; ParaGard replaced 02/22/2023. Code(s): Z97.5 - Presence of (intrauterine) contraceptive device (4) Screening for cervical cancer: Comment: History of genital warts; 07/06/2022 Pap is negative with negative HPV positive Actinomyces and coccobacilli, has been treated for Gardnerella. Ultrasound secondary to occasional bloating is pending repeat exam at follow-up visit and consider cultures if necessary,(if tender and signs of PID, which were not present at the initial appointment) Code(s): Z12.4 - Encounter for screening for malignant neoplasm of cervix (5) Encounter for screening examination for sexually transmitted disease: Code(s): Z11.3 - Encounter for screening for infections with a predominantly sexual mode of transmission Plan -----Discussed in this visit the following: healthy balanced diet, regular and consistent exercise, getting recommended health screens, doing the best she can for her particular health concerns, kegel exercises, pap smear screening and followup recommendations, mammography screening and SBE, normal changes in cycles in her life stage--- . Pap was deferred but testing was done for gonorrhea chlamydia trichomoniasis Gardnerella and Елена. Testing placed in system for HIV hep B hep C and syphilis. In placing the orders I noted that there was not a set of orders for any fasting lab work from any other entity in the system. I recommend that the patient call the providers who she thinks ordered the labs and see if there was a glitch with placing the orders and if they can place the orders again because they are not there at this moment. I placed another order for mammogram for her. I wished her luck with the weight loss process and all of her other health issues as weight loss will help her breathing and snoring and sleeping as well as her knee and pre diabetes state. Orders: Orders Hepatitis B Surface Antigen Today Z11.3 - Encounter for screening for infections with a predominantly sexual mode of transmission Hepatitis C Antibody Today Z11.3 - Encounter for screening for infections with a predominantly sexual mode of transmission HIV Ab/Ag Today Z11.3 - Encounter for screening for infections with a predominantly sexual mode of transmission Syphilis Screen Today Z11.3 - Encounter for screening for infections with a predominantly sexual mode of transmission MM tomosynthesis screening BI Today Z12.31 - Encounter for screening mammogram for malignant neoplasm of breast Coding Level of Care Code Est Pt Prev Care 40-64y(45649) Diagnoses Morbid obesity with BMI of 40.0-44.9, adult E66.01; Z68.41 Actinomyces infection A42.9 IUD (intrauterine device) in place Z97.5 Screening for cervical cancer Z12.4 Encounter for screening examination for sexually transmitted disease Z11.3
== END 2023-08-02 15:59 | disposition home or self-care (01) ==
LOC: HO.HWSM 14:50
PROVIDERS: PCP Internal Medicine; Visit Provider Advanced Practice Midwife
DX: Z01.419 Encounter for gynecological examination (general) (routine) without abnormal findings (principal); E66.01 Morbid (severe) obesity due to excess calories; Z68.41 Body mass index [BMI] 40.0-44.9, adult; A42.9 Actinomycosis, unspecified; Z97.5 Presence of (intrauterine) contraceptive device; Z11.3 Encounter for screening for infections with a predominantly sexual mode of transmission
CPT/HCPCS: 99396

== ENCOUNTER → 2023-08-04 14:44 | Outpatient (REF) | payer OTHER, SELFPAY | LOC: HO.SL 14:44 | PROVIDERS: PCP Internal Medicine; Visit Provider Internal Medicine | DX: Z13.89 Encounter for screening for other disorder (principal) ==

== ENCOUNTER 2023-08-29 14:39 | Outpatient (AMB) | payer OTHER, SELFPAY ==
--- NOTE | 2023-08-29 14:59 | A.OFFVIS_ITS ---
Intake VS Expanded 08/29/23 15:00 08/29/23 15:08 Height 5 ft 6 in 5 ft 6 in Weight 251 lb 12.286 oz 252 lb BMI 40.6 40.7 Intake Visit Reasons: Obesity/LVM Allergies egg Allergy (Intermediate, Verified 08/02/23 14:53) vomitting, hives peanut Allergy (Mild, Verified 08/02/23 14:53) Abdominal Pain fish derived [fish] Allergy (Verified 08/02/23 14:53) Anaphylaxis poppyseed oil Allergy (Verified 08/02/23 14:53) Anaphylaxis sesame seed Allergy (Verified 08/02/23 14:53) Anaphylaxis latex [LATEX] Adverse Reaction (Intermediate, Verified 08/02/23 14:53) rash HPI Nutrition Presentation Details Pt presents for MNT for obesity. The Pt was referred by Gaye Jiménez, from gastroentorologist food frequency fruits: 0-1d ve-1/wk fish not including dairy: cheese mostly starches > 25 serving/d physical activity - daily life etoh- --- smoking denies fluids: water, coffee, soda > 24 oz/day [id number]-Ia.Jeor Equation Height 5 ft 6 in Weight 252 lb Resting Metabolic Rate 1807.26 Calculated Activity Level Sedentary Calories Needed to Maintain Weight 2168.71 Diagnosis Nutrition problem #1 excessive energy intake As related to (etiology) #1 diagnosis As evidenced by (sign/symptom) #1 high BMI (40.7 on 08/2023) Monitoring/Goals Nutrition problem monitoring level of knowledge/skill, total PRO intake, total CHO intake, weight and oral fluids Nutrition goal/outcome list 3 CHO foods and wt loss 5lbs in 2 months Outcome progress verbalized understanding Learning/Education Readiness to learn good Most Recent Diabetes Results: Cholesterol 175 mg/dL (<200) 07/09/23 HDL Cholesterol 41 mg/dL (>40) 07/09/23 Triglycerides 68 mg/dL (<150) 07/09/23 Creatinine 0.69 mg/dL (0.5-1.4) 07/09/23 Blood Urea Nitrogen 11 mg/dL (9-16) 07/09/23 Sodium 139 mmol/L (135-145) 07/09/23 Potassium 4.1 mmol/L (3.3-5.1) 07/09/23 Chloride 105 mmol/L (96-108) 07/09/23 Carbon Dioxide 27 mmol/L (22-29) 07/09/23 Calcium 9.0 mg/dL (8.4-10.2) 07/09/23 AST 11 U/L (5-31) 07/09/23 ALT 11 U/L (0-31) 07/09/23 Total Protein 6.9 g/dL (6.5-8.0) 07/09/23 Albumin 3.7 g/dL (3.5-5.0) 07/09/23 [facility] Medical History Encounter for removal and reinsertion of intrauterine contraceptive device (IUD) Screen for sexually transmitted diseases Well woman exam with routine gynecological exam Physical exam Hospital discharge follow-up Right knee pain Left knee pain Lumbar back pain Abdominal cramping Abdominal bloating Upper abdominal pain Obesity GERD (gastroesophageal reflux disease) Surgical History History of hernia surgery Family History Mother Cervical cancer Father Diabetes Family/Other Substance use disorder Mental health disorder Family/Other Breast cancer Maternal Uncle Prostate cancer Maternal Uncle Colon cancer Social History Housing: Apartment Alcohol intake: former Patient Tobacco Use Status: Former Tobacco user Tobacco use type: Cigarette e-Cigarette/Vaping Use: Never Used Second Hand Smoke Exposure: No service: No Current occupational status: 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, 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 Current occupational exposures/hazards: No Cognitive needs: No Hearing needs: No Vision needs: Yes Female Reproductive History Menstrual Age of Menarche: 12 Assessment & Plan Assessment & Plan (1) Morbid obesity with BMI of 40.0-44.9, adult: Code(s): E66.01 - Morbid (severe) obesity due to excess calories; Z68.41 - Body mass index [BMI] 40.0-44.9, adult Plan: Wt: 114 Kg ( 08/2023 ) Est kcal needs as per MSJ: 2200 (40% carb, 30% protein/fat) Est fluid needs as per 25-30 ml/d: 3400 Est prot per day as per 1 g/kg bw: 114 Recommend fiber intake : 8-10 g per day and gradually increase to 25-28 g per day for women and 35-38 g for men or as tolerated Recommend sodium intake per day : less than 2000 mg Educated patient on: ( R = reviewed V = verbalizes understanding N/R = needs review N/A = not applicable * Food sources of carbohydrate, adequate serving sizes and its role in various health conditions: R * Differences between complex carbohydrates a simple carbohydrates, role of fiber in diet: R * Lean protein sources of foods: R * Differences between types of fats and role in diet (mono on saturated fat fatty acids, saturated fatty acids, trans fats): R basic * Food sources of sodium in salt and healthy modifications for heart health in kidney health: NR * Vitamins and minerals: N/R * Healthy plate method concept: R * Physical activity: Benefits a precaution: R Patient Instructions: Have meal replacement at lunch instead of skipping at least 3 times a week Follow healthy plate method at dinner 4 times a week Work on reducing pastries/cookies and replace with a fruit Coding Level of Care Code Nutr Indiv Intake (12808) Diagnoses Morbid obesity with BMI of 40.0-44.9, adult E66.01; Z68.41 Time Spent (min) 30
[2023-08-29 15:00] VITALS: BMI 40.6
[2023-09-06 12:58] VITALS: BMI 40.7
== END 2023-08-29 15:31 | disposition home or self-care (01) ==
PROVIDERS: PCP Internal Medicine; Visit Provider Dietitian, Registered
DX: E66.01 Morbid (severe) obesity due to excess calories (principal); Z68.41 Body mass index [BMI] 40.0-44.9, adult

== ENCOUNTER → 2023-08-29 14:39 | Outpatient (BNVA) | payer OTHER, SELFPAY | PROVIDERS: PCP Internal Medicine; Visit Provider Dietitian, Registered | DX: E66.01 Morbid (severe) obesity due to excess calories (principal); Z68.41 Body mass index [BMI] 40.0-44.9, adult | CPT/HCPCS: 97802 ==

== ENCOUNTER 2023-10-03 15:46 | Outpatient (REF) | payer OTHER, SELFPAY | END 2023-10-03 15:47 | disposition home or self-care (01) | LOC: HO.MAMMO 15:46 | PROVIDERS: PCP Internal Medicine; Visit Provider Advanced Practice Midwife | DX: Z12.31 Encounter for screening mammogram for malignant neoplasm of breast (principal) | CPT/HCPCS: 77063; 77067 ==

== ENCOUNTER → 2023-10-03 16:15 | Outpatient (BNV) | payer OTHER, SELFPAY | PROVIDERS: PCP Internal Medicine; Visit Provider Radiology Diagnostic Radiology | DX: Z12.31 Encounter for screening mammogram for malignant neoplasm of breast (principal) | CPT/HCPCS: 77063; 77067 ==

== ENCOUNTER → 2023-11-01 15:41 | Outpatient (REF) | payer OTHER, SELFPAY | LOC: HO.SL 15:41 | PROVIDERS: PCP Internal Medicine; Visit Provider Internal Medicine | DX: R40.0 Somnolence (principal); R06.83 Snoring | CPT/HCPCS: 95806 ==

== ENCOUNTER → 2023-11-01 15:47 | Outpatient (BNV) | payer OTHER, SELFPAY | PROVIDERS: PCP Internal Medicine; Visit Provider Internal Medicine | DX: R06.83 Snoring (principal); R40.0 Somnolence | CPT/HCPCS: 95806 ==

== ENCOUNTER 2024-07-06 16:44 | Outpatient (AMB) | payer OTHER, SELFPAY ==
--- NOTE | 2024-07-06 16:45 | A.OFFPC_ITS ---
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 Accompanied by: Self / Same As Patient Allergies egg Allergy (Intermediate, Verified 07/06/24 17:05) vomitting, hives peanut Allergy (Mild, Verified 07/06/24 17:05) Abdominal Pain fish derived [fish] Allergy (Verified 07/06/24 17:05) Anaphylaxis poppyseed oil Allergy (Verified 07/06/24 17:05) Anaphylaxis sesame seed Allergy (Verified 07/06/24 17:05) Anaphylaxis latex [LATEX] Adverse Reaction (Intermediate, Verified 07/06/24 17:05) rash Medication List - Last Reconciled 07/06/24 by Laura Urbano MD copper (ParaGard T 380A) intrauterine cyclobenzaprine 10 mg PO TID PRN 10 days dicyclomine 10 mg PO QID naproxen 500 mg PO BID PRN 30 days omeprazole 20 mg PO BID 90 days Tobacco use date assessed: 09/13/22 Dental Screening Dental Screen Date: 06/23/23 HPI HPI Comments History of Present Illness Details The patient is a 44-year-old female presenting for an annual wellness examination. She has a significant history of bariatric surgery performed recently on May 18, with subsequent notable weight loss reported. Her past medical history is significant for a hernia, which has been surgically repaired. She has previously smoked and consumed alcohol, but she has since ceased these activities. The patient's family history is significant for cervical cancer in her mother and diabetes mellitus in her father. She reports increased feelings of fatigue but denies any ongoing depressive symptoms. Her preventive care includes a Pap smear conducted in 2022, which was HPV negative, and a recommendation for a repeat in 2027. Her last mammogram was performed in October 2022. The patient underwent a Cologuard test in July of the previous year, which returned normal results. She reports a slightly elevated blood glucose level upon previous laboratory investigations, necessitating further monitoring. A vitamin D deficiency has been previously noted, and she continues to monitor this. She is maintaining a diet following the advice post-bariatric surgery and is engaged in juicing for health improvement. - Tetanus vaccination last received in ; next due in 2028. - Pap smear conducted in 2022, with HPV negative results; follow-up in 2027. - Mammogram completed in October 2022. - Cologuard test completed in July of the previous year with normal results. - Previous labs indicated slightly eleva duane blood glucose levels. - Ongoing monitoring and supplementation for vitamin D deficiency as needed. COUNTS INCLUDE 234 BEDS AT THE [facility] Medical History (Updated 07/06/24 @ 19:51 by Laura Urbano MD) Mild major depression Morbid obesity with BMI of 40.0-44.9, adult Physical exam Encounter for removal and reinsertion of intrauterine contraceptive device (IUD) Screen for sexually transmitted diseases Well woman exam with routine gynecological exam Hospital discharge follow-up Right knee pain Left knee pain Lumbar back pain Abdominal cramping Abdominal bloating Upper abdominal pain Obesity GERD (gastroesophageal reflux disease) Surgical History (Updated 07/06/24 @ 17:13 by Laura Urbano MD) History of weight loss surgery History of hernia surgery Family History Mother Cervical cancer Father Diabetes Family/Other Substance use disorder Mental health disorder Family/Other Breast cancer Maternal Uncle Prostate cancer Maternal Uncle Colon cancer Social History Housing: Apartment Alcohol intake: former Patient Tobacco Use Status: Former Tobacco user Tobacco use type: Cigarette e-Cigarette/Vaping Use: Never Used Second Hand Smoke Exposure: No service: No Current occupational status: 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 1. Little interest or pleasure in doing things: not at all 2. Feeling down, depressed, or hopeless: not at all 3. Trouble falling or staying asleep, or sleeping too much: not at all 4. Feeling tired or having little energy: several days 5. Poor appetite or overeating: several days 6. Feeling bad about yourself - or that you are a failure or have let yourself or your family down: not at all 7. Trouble concentrating on things, such as reading the newspaper or watching television: not at all 8. Moving or speaking so slowly that other people could have noticed. Or the opposite - being so fidgety or restless that you have been moving around a lot more than usual: not at all 9. Thoughts that you would be better off or of hurting yourself in some way: not at all Total score: 2 Depression Screening Interpretation: Negative Depression Screening Done: Yes 23793 - PHQ-9 Billing: Yes Source: Developed by Drs. Parrish Buckley, Miya Aleman, Valentin Rothman and colleagues, with an educational cas from [employer]. Thrive Questionnaire Date Thrive assessed: 07/06/24 I am a: Patient What is your living situation today?: I choose not to answer this question Within the past 12 months, did the food you bought not last and you didn't have the money to get more?: I choose not to answer this question Within the past 12 months, did you worry whether your food would run out before you got money to buy more?: I choose not to answer this question Do you have trouble paying for medicines?: I choose not to answer this question Do you have trouble getting transportation to medical appointments?: I choose not to answer this question Do you have trouble paying your heating and electricity bill?: I choose not to answer this question Do you have trouble taking care of your child, family member or friend?: No Do you have trouble with day-to-day activities such as bathing, preparing meals, shopping, managing finances, etc.?: No Are you currently unemployed and looking for a job?: No Are you interested in more education?: Yes Please select the resources that you would like help with: None Currently or been in a relationship where the following occur: I choose not to answer THRIVE Score: 0 AUDIT C Alcohol Use Questionnaire (AUDIT-C) 1. How often do you have a drink containing alcohol?: Never 3. How often do you have six or more drinks on one occasion?: Never Total Score: 0 Score Reviewed/Action Taken: No SUSU-7 AMB Questionnaire SUSU-7 Date SUSU - 7 assessed: 07/06/24 Feeling nervous, anxious, or on edge: 0 = Not at all Not being able to stop or control worryin = Not at all Worrying too much about different things: 0 = Not at all Trouble relaxin = Not at all Being so restless that it is hard to sit still: 0 = Not at all Becoming easily annoyed or irritable: 0 = Not at all Feeling afraid as if something awful might happen: 0 = Not at all Total SUSU-7 score (0-4 normal; 5-9 mild; 10-14 moderate; 15-21 severe): 0 Source: Developed by Drs. Parrish Buckley, Miya Aleman, Valentin Rothman and colleagues, with an educational cas from [employer]. SUSU-7 Assessment Billing SUSU-7 Assessment Tool: SUSU-7 Assessment 27321 Review of Systems Const All systems reviewed & are unremarkable except as noted in HPI and below ENT Denies change in voice, Denies nasal discharge and Denies sinus pain Card Denies chest pain at rest, Denies chest pain with activity, Denies edema, Denies irregular heart rhythm, Denies claudication, Denies dyspnea, Denies dyspnea on exertion, Denies orthopnea, Denies paroxysmal nocturnal dyspnea and Denies slow heart rate Resp Denies cough, Denies dyspnea and Denies dyspnea on exertion GI Denies abdominal pain, Denies change in bowel habits, Denies excessive flatus, Denies nausea and Denies vomiting Denies urinary incontinence, Denies urinary hesitancy and Denies urinary urgency Musc Denies atrophy, Denies deformity and Denies limited range of motion Physical exam (Primary Care) Vital Signs: Last Vital Signs Pulse 97 07/06/24 16:47 BP 120/84 07/06/24 16:47 Pulse Ox 99 07/06/24 16:47 Oxygen Delivery Method Room Air 07/06/24 16:47 BMI result Body Mass Index 33.6 BMI Assessment/Plan discussion: High BMI High, discussed plan: lifestyle, weight reduction, dietary and physical activity Tobacco/Smoking Status: Tobacco use Status Tobacco use date assessed 09/13/22 07/06/24 16:45 Patient Tobacco Use Status Former Tobacco user 07/06/24 16:45 Tobacco use type Cigarette 07/06/24 16:45 e-Cigarette/Vaping Use Never Used 07/06/24 16:45 PHQ-9: PHQ-9 Score PHQ-9: Total score 2 07/06/24 17:26 Depression Screening Interpretation: Negative Thrive Assessment: Date of Thrive Assessment Date Thrive assessed 07/06/24 07/06/24 16:51 Currently or been in a relationship where the following occur: I choose not to answer HENMT Head: Yes normal to inspection, Yes normocephalic and Yes atraumatic Ears: external ears normal Eyes General: appearance normal, both eyes and all related structures Eyelids: Yes eyelids normal Conjunctivae: conjunctivae normal Neck Neck: Yes normal visual inspection and Yes supple Resp Effort & Inspection: normal respiratory effort Auscultation: clear to auscultation bilaterally Cardio Jugular venous distension: no JVD Rate: regular rate Rhythm: regular rhythm Heart sounds: S1 normal heart sound present and S2 normal heart sound present GI Inspection: Yes normal to inspection Palpation (GI): Soft to palpation and nontender Auscultation: normal bowel sounds Skin General skin exam: no rashes or lesions noted Neuro General: no focal motor deficits Extrem General: Yes full ROM Psych Appearance: grossly normal Office Procedures Flu Questionnaire Does the patient have a severe egg allergy?: No Immunizations Fluarix Triv [id number] (PF) 45 mcg (15 mcg x 3)/0.5 mL IM syringe Performing Provider: Laura Urbano MD [facility] [place] [facility] Documented (not given) by: ELIZABETH Waddell on 07/06/24 17:03 Reason Not Given: Patient Refused Coding Level of Care Code Est Pt Prev Care 40-64y(19682) Diagnoses Physical exam Z00.00 Additional Codes SUSU-7 Assessment Billing - SUSU-7 Assessment Tool: SUSU-7 Assessment 06537 ([id number]) PHQ-9 - 77143 - PHQ-9 Billing: Yes ([id number]) Time Spent (min) 30 Assessment & Plan Assessment & Plan (1) Physical exam: Code(s): Z00.00 - Encounter for general adult medical examination without abnormal findings Category: Medical Plan - Continue monitoring blood glucose levels; schedule follow-up labs to assess current status. - Continue vitamin D supplementation and follow up with periodic assessment of levels. - Encourage continued participation in health-promoting dietary measures post- bariatric surgery. - Continue regular screenings as indicated, following the schedule for Pap smear and mammograms. - Educate on signs and symptoms of diabetes-related complications given the family history. Patient was informed and verbally consented to the use of an ambient scribe for clinic note documentation during this visit. During the visit, I discussed with the patient the importance of maintaining regular health screenings and monitoring post-bariatric surgery. We reviewed her recent laboratory findings and emphasized the importance of keeping blood glucose levels within normal limits, given the family history of diabetes. Di scussions included ongoing vitamin D supplementation and the necessity of continuous lifestyle modifications to support weight management. The plan for periodic monitoring of potential complications was elaborated upon to ease any concerns. I reassured her of the normal results from her previous Cologuard test and emphasized the importance of regular follow-up with mammograms and Pap smears. The patient was counseled on maintaining her current tobacco- and alcohol-free status. Orders: Orders Vitamin D 25-OH Total Today E55.9 - Vitamin D deficiency, unspecified Comprehensive [place]. Panel Fast Today Z00.00 - Encounter for general adult medical examination without abnormal findings Influenza [id number] Immunization Today Z23 - Encounter for immunization Lipid Panel Today Z00.00 - Encounter for general adult medical examination without abnormal findings Patient Instructions: - Continue with regular health screenings as scheduled. - Maintain healthy eating habits, including juicing, to support weight loss and overall health. - Monitor blood glucose levels as instructed and schedule follow-up lab work. - Take vitamin D supplements as recommended to address deficiency. - Contact the office with any concerns or changes in health status.
[2024-07-06 16:47] VITALS: BP 120/84; PULSE 97; O2SAT 99; BMI 33.6
== END 2024-07-06 17:19 | disposition home or self-care (01) ==
PROVIDERS: PCP Internal Medicine; Visit Provider Internal Medicine
DX: Z00.00 Encounter for general adult medical examination without abnormal findings (principal); Z23 Encounter for immunization

== ENCOUNTER → 2024-07-06 16:44 | Outpatient (BNVA) | payer OTHER, SELFPAY | PROVIDERS: PCP Internal Medicine; Visit Provider Internal Medicine | DX: Z00.00 Encounter for general adult medical examination without abnormal findings (principal); E55.9 Vitamin D deficiency, unspecified; Z28.21 Immunization not carried out because of patient refusal | CPT/HCPCS: 90471; 96127; 99396 ==